=== PATIENT | male | born 1960 | race Caucasian/White ===

== ENCOUNTER 2017-05-09 03:14 | Emergency (ER) | payer MEDICAID ==
[~2017-05-09] VITALS: Ht 175.3 cm; Wt 58.0 kg
[~2017-05-09 03:14] MED LIST: IBUP200T5 PO; ONDA4TAB7 PO; PANT40TA3 PO; VANC125C11 PO; albuterol inh
[2017-05-09 05:15] VITALS: BP 112/74
== END 2017-05-09 05:23 | disposition home or self-care (01) ==
LOC: ED 03:41
DX: F10.220 Alcohol dependence with intoxication, uncomplicated (principal); J44.9 Chronic obstructive pulmonary disease, unspecified
CPT/HCPCS: 99283

== ENCOUNTER 2017-05-10 22:45 | Emergency (ER) | payer MEDICAID | END 2017-05-10 23:22 | disposition left against medical advice (07) | LOC: ED 23:16 | DX: Z53.21 Procedure and treatment not carried out due to patient leaving prior to being seen by health care provider (principal) ==

== ENCOUNTER 2017-05-11 20:21 | Inpatient (IN) | payer MEDICAID ==
[~2017-05-11] VITALS: Ht 175.3 cm; Wt 56.0 kg
[~2017-05-11 20:21] MED LIST changes: +IBUP-1484 PO; -IBUP200T5 PO
[2017-05-11] MEDS: SODIUM CHLORIDE 0.9% 1,000 ML IV SCH (21:52)
[2017-05-11] MEDS ORDERED: PROMETHAZINE 25 MG/ML, 1ML IM PRN (22:00)
[2017-05-11] MEDS ORDERED: LORazepam 2 MG/ML, 1ML IVPush PRN (22:00)
[2017-05-11] MEDS ORDERED: LABETALOL 5MG/ML, 20ML IVPush PRN (22:00)
[2017-05-11] MEDS ORDERED: DOCUSATE 100 MG CAPSULE PO PRN (22:00)
[2017-05-11] MEDS ORDERED: ACETAMINOPHEN 325 MG TABLET PO PRN (22:00)
[2017-05-11] MEDS ORDERED: MORPHINE SULFATE 4 MG/ML, 1ML IVPush ONE (22:00)
[2017-05-11] MEDS ORDERED: ZOLPIDEM 5MG TABLET PO PRN (22:00)
[2017-05-11] MEDS ORDERED: ONDANSETRON 2MG/ML, 2ML IVPush PRN (22:00)
[2017-05-11] MEDS ORDERED: BISACODYL 10 MG SUPP PR PRN (22:00)
[2017-05-11] MEDS ORDERED: POLYETHYLENE GLYCOL 17 GM PACKET PO PRN (22:00)
[2017-05-11] MEDS: NICOTINE 21 MG/24 HR PATCH.TD24 TD SCH (22:50)
[2017-05-11] MEDS: OXYcodone IR 5MG TABLET PO PRN (22:50)
[2017-05-11 23:18] LABS: HEMATOCRIT 43.2 % (39.2-51.8); HEMOGLOBIN 14.6 g/dL (13.7-18.0); WHITE BLOOD COUNT 3.8 x10^3/uL (3.4-10)
[2017-05-11 23:26] LABS: ASPARTATE AMINO TRANSFERASE 315 U/L (15-37); BLOOD UREA NITROGEN 4 mg/dL (7-18)
[2017-05-12] MEDS: POTASSIUM CHLORIDE 20 MEQ, MAGNESIUM SULFATE 2 GM, THIAMINE 100 MG, MVI ADULT 10 ML, FO... IV SCH ×3 (00:02→13:52)
[2017-05-12] MEDS: morphine SULFATE 10 MG/ML, 1ML IVPush PRN (00:13)
[2017-05-12 01:24] LABS: DAU SCREEN DISCLAIMER
[2017-05-12 01:56] VITALS: BP 152/87
[2017-05-12] MEDS: OXYcodone IR 5MG TABLET PO PRN ×4 (03:55→22:36)
[2017-05-12 07:40] VITALS: BP 144/93
[2017-05-12] MEDS: SODIUM CHLORIDE 0.9% 1,000 ML IV SCH ×2 (10:07→18:18)
[2017-05-12] MEDS: LORazepam 0.5MG TABLET PO PRN (10:24)
[2017-05-12] MEDS ORDERED: LORazepam 2 MG/ML, 1ML IV PRN ×4 (10:30)
[2017-05-12] MEDS ORDERED: LORazepam 1MG TABLET PO PRN ×2 (10:30)
[2017-05-12 12:31] VITALS: BP 150/88
[2017-05-12] MEDS: LORazepam 1MG TABLET PO PRN ×2 (14:03→18:21)
[2017-05-12 20:05] VITALS: BP 115/75
[2017-05-12] MEDS: NICOTINE 21 MG/24 HR PATCH.TD24 TD SCH (21:01)
[2017-05-13] MEDS: POTASSIUM CHLORIDE 20 MEQ, MAGNESIUM SULFATE 2 GM, THIAMINE 100 MG, MVI ADULT 10 ML, FO... IV SCH
[2017-05-13 00:04] VITALS: BP 111/64
[2017-05-13] MEDS: SODIUM CHLORIDE 0.9% 1,000 ML IV SCH ×2 (00:22→10:41)
[2017-05-13] MEDS: morphine SULFATE 10 MG/ML, 1ML IVPush PRN ×3 (04:10→16:58)
[2017-05-13 05:38] LABS: ASPARTATE AMINO TRANSFERASE 82 U/L (15-37); BLOOD UREA NITROGEN 5 mg/dL (7-18)
[2017-05-13 06:00] LABS: DIFF TOTAL CELLS COUNTED 100 CELL DIFF; HEMATOCRIT 39.5 % (39.2-51.8); HEMOGLOBIN 13.4 g/dL (13.7-18.0); WHITE BLOOD COUNT 3.6 x10^3/uL (3.4-10)
[2017-05-13 06:01] LABS: VERIFY COUNTS? YES
[2017-05-13 07:51] VITALS: BP 106/68
[2017-05-13 13:36] VITALS: BP 118/72
[2017-05-13] MEDS: LORazepam 1MG TABLET PO PRN (14:33)
[2017-05-13] MEDS: ENOXAPARIN 40 MG/0.4 ML SQ SCH (14:34)
[2017-05-13 18:55] VITALS: BP 114/76
[2017-05-13] MEDS: NICOTINE 21 MG/24 HR PATCH.TD24 TD SCH (21:18)
[2017-05-13] MEDS: OXYcodone IR 5MG TABLET PO PRN (21:18)
[2017-05-13] MEDS: LORazepam 0.5MG TABLET PO PRN (21:36)
[2017-05-14 01:13] VITALS: BP 129/80
[2017-05-14] MEDS: LORazepam 1MG TABLET PO PRN ×4 (01:18→22:49)
[2017-05-14] MEDS: OXYcodone IR 5MG TABLET PO PRN ×4 (01:18→18:06)
[2017-05-14] MEDS: LORazepam 0.5MG TABLET PO PRN (03:13)
[2017-05-14 04:47] LABS: BLOOD UREA NITROGEN 5 mg/dL (7-18)
[2017-05-14 04:52] LABS: ASPARTATE AMINO TRANSFERASE 71 U/L (15-37)
[2017-05-14 04:54] LABS: HEMATOCRIT 42.6 % (39.2-51.8); HEMOGLOBIN 14.4 g/dL (13.7-18.0); WHITE BLOOD COUNT 3.9 x10^3/uL (3.4-10)
[2017-05-14 07:55] VITALS: BP 121/74
[2017-05-14] MEDS: THIAMINE 100MG TABLET PO SCH (09:37)
[2017-05-14] MEDS: FOLIC ACID 1 MG TABLET PO SCH (09:37)
[2017-05-14] MEDS: MULTIVIT.W/IRON, MINERALS ORAL SOL PO SCH (09:38)
[2017-05-14] MEDS: SODIUM CHLORIDE 0.9% 1,000 ML IV SCH ×2 (12:12→23:49)
[2017-05-14 13:25] VITALS: BP 125/85
[2017-05-14] MEDS: ENOXAPARIN 40 MG/0.4 ML SQ SCH (14:30)
[2017-05-14] MEDS: metroNIDAZOLE 500 MG TABLET PO SCH ×3 (18:06→22:28)
[2017-05-14] MEDS: CHLORDIAZEPOXIDE 5 MG CAPSULE PO SCH ×2 (18:06→22:21)
[2017-05-14] MEDS: LORazepam 2 MG/ML, 1ML IV PRN (18:53)
[2017-05-14 21:03] VITALS: BP 107/71
[2017-05-14] MEDS: NICOTINE 21 MG/24 HR PATCH.TD24 TD SCH (22:21)
[2017-05-15] MEDS: METRONIDAZOLE PMX 500MG/100ML 100 ML IV SCH ×3 (01:23→16:36)
[2017-05-15 01:31] VITALS: BP 127/84
[2017-05-15] MEDS: LORazepam 2 MG/ML, 1ML IV PRN (01:49)
[2017-05-15 06:01] LABS: ASPARTATE AMINO TRANSFERASE 53 U/L (15-37); BLOOD UREA NITROGEN 9 mg/dL (7-18)
[2017-05-15 08:38] VITALS: BP 98/57
[2017-05-15] MEDS: CHLORDIAZEPOXIDE 5 MG CAPSULE PO SCH ×3 (09:27→22:06)
[2017-05-15] MEDS: THIAMINE 100MG TABLET PO SCH (09:27)
[2017-05-15] MEDS: MULTIVIT.W/IRON, MINERALS ORAL SOL PO SCH (09:27)
[2017-05-15] MEDS: FOLIC ACID 1 MG TABLET PO SCH (09:27)
[2017-05-15 14:00] VITALS: BP 104/68
[2017-05-15] MEDS: SODIUM CHLORIDE 0.9% 1,000 ML IV SCH (14:57)
[2017-05-15] MEDS: ENOXAPARIN 40 MG/0.4 ML SQ SCH (14:58)
[2017-05-15] MEDS: POTASSIUM CHLORIDE 20 MEQ TAB.ER.PRT PO SCH (17:00)
[2017-05-15 21:59] VITALS: BP 116/76
[2017-05-15] MEDS: NICOTINE 21 MG/24 HR PATCH.TD24 TD SCH (22:06)
[2017-05-16] MEDS: METRONIDAZOLE PMX 500MG/100ML 100 ML IV SCH ×2 (00:28→08:43)
[2017-05-16] MEDS: OXYcodone IR 5MG TABLET PO PRN ×5 (00:28→19:13)
[2017-05-16 03:59] VITALS: BP 124/77
[2017-05-16] MEDS: SODIUM CHLORIDE 0.9% 1,000 ML IV SCH (04:58)
[2017-05-16] MEDS: POTASSIUM CHLORIDE 20 MEQ TAB.ER.PRT PO SCH (07:48)
[2017-05-16 08:01] VITALS: BP 114/81
[2017-05-16] MEDS: THIAMINE 100MG TABLET PO SCH (08:44)
[2017-05-16] MEDS: MULTIVIT.W/IRON, MINERALS ORAL SOL PO SCH (08:44)
[2017-05-16] MEDS: FOLIC ACID 1 MG TABLET PO SCH (08:44)
[2017-05-16] MEDS: CHLORDIAZEPOXIDE 5 MG CAPSULE PO SCH ×3 (08:44→22:25)
[2017-05-16] MEDS: metroNIDAZOLE 500 MG TABLET PO SCH ×3 (10:00→22:25)
[2017-05-16] MEDS: ENOXAPARIN 40 MG/0.4 ML SQ SCH (14:22)
[2017-05-16 14:23] VITALS: BP 98/64
[2017-05-16] MEDS ORDERED: ACETAMINOPHEN 325 MG TABLET PO PRN (15:30)
[2017-05-16] MEDS ORDERED: LORazepam 0.5MG TABLET PO PRN (15:30)
[2017-05-16] MEDS ORDERED: PROMETHAZINE 25 MG/ML, 1ML IM PRN (15:30)
[2017-05-16] MEDS ORDERED: POLYETHYLENE GLYCOL 17 GM PACKET PO PRN (15:30)
[2017-05-16] MEDS ORDERED: DOCUSATE 100 MG CAPSULE PO PRN (15:30)
[2017-05-16] MEDS ORDERED: LORazepam 2 MG/ML, 1ML IVPush PRN (15:30)
[2017-05-16] MEDS ORDERED: LORazepam 1MG TABLET PO PRN ×4 (15:30)
[2017-05-16] MEDS ORDERED: morphine SULFATE 10 MG/ML, 1ML IVPush PRN (15:30)
[2017-05-16] MEDS ORDERED: LORazepam 2 MG/ML, 1ML IV PRN ×5 (15:30)
[2017-05-16] MEDS ORDERED: ONDANSETRON 2MG/ML, 2ML IVPush PRN (15:30)
[2017-05-16] MEDS ORDERED: BISACODYL 10 MG SUPP PR PRN (15:30)
[2017-05-16] MEDS ORDERED: LABETALOL 5MG/ML, 20ML IVPush PRN (15:30)
[2017-05-16] MEDS ORDERED: ZOLPIDEM 5MG TABLET PO PRN (15:30)
[2017-05-16 19:52] VITALS: BP 104/64
[2017-05-16] MEDS: NICOTINE 21 MG/24 HR PATCH.TD24 TD SCH (22:25)
[2017-05-17 02:32] VITALS: BP 116/68
[2017-05-17 05:53] LABS: BLOOD UREA NITROGEN 9 mg/dL (7-18)
[2017-05-17 06:45] VITALS: BP 115/67
[2017-05-17 08:00] VITALS: BP 96/54
[2017-05-17] MEDS: CHLORDIAZEPOXIDE 5 MG CAPSULE PO SCH ×3 (08:59→21:29)
[2017-05-17] MEDS: THIAMINE 100MG TABLET PO SCH (08:59)
[2017-05-17] MEDS: FOLIC ACID 1 MG TABLET PO SCH (08:59)
[2017-05-17] MEDS: metroNIDAZOLE 500 MG TABLET PO SCH ×3 (08:59→21:30)
[2017-05-17] MEDS: OXYcodone IR 5MG TABLET PO PRN ×2 (08:59→21:30)
[2017-05-17] MEDS: MULTIVIT.W/IRON, MINERALS ORAL SOL PO SCH (09:00)
[2017-05-17] MEDS: ENOXAPARIN 40 MG/0.4 ML SQ SCH (14:47)
[2017-05-17 15:28] VITALS: BP 93/60
[2017-05-17] MEDS ORDERED: MAGNESIUM SULFATE PMX 4GM/100M 100 ML IV ONE (17:30)
[2017-05-17] MEDS ORDERED: LORazepam 2 MG/ML, 1ML IVPush PRN (18:00)
[2017-05-17 19:53] VITALS: BP 99/64
[2017-05-17] MEDS: NICOTINE 21 MG/24 HR PATCH.TD24 TD SCH (21:30)
[2017-05-18] MEDS: OXYcodone IR 5MG TABLET PO PRN ×4 (01:38→20:51)
[2017-05-18 02:43] VITALS: BP 125/78
[2017-05-18 05:32] LABS: ASPARTATE AMINO TRANSFERASE 44 U/L (15-37); BLOOD UREA NITROGEN 11 mg/dL (7-18)
[2017-05-18 05:33] LABS: HEMATOCRIT 39.8 % (39.2-51.8); HEMOGLOBIN 13.3 g/dL (13.7-18.0)
[2017-05-18 06:02] LABS: DIFF TOTAL CELLS COUNTED 100 CELL DIFF; WHITE BLOOD COUNT 3.2 x10^3/uL (3.4-10)
[2017-05-18 06:06] LABS: VERIFY COUNTS? YES
[2017-05-18 07:48] VITALS: BP 102/64
[2017-05-18] MEDS: metroNIDAZOLE 500 MG TABLET PO SCH ×3 (10:17→20:51)
[2017-05-18] MEDS: CHLORDIAZEPOXIDE 5 MG CAPSULE PO SCH ×2 (10:17→20:51)
[2017-05-18] MEDS: THIAMINE 100MG TABLET PO SCH (10:17)
[2017-05-18] MEDS: MULTIVITAMIN 1 TABLET PO SCH (10:17)
[2017-05-18] MEDS: FOLIC ACID 1 MG TABLET PO SCH (10:17)
[2017-05-18 14:01] VITALS: BP 93/60
[2017-05-18] MEDS: ENOXAPARIN 40 MG/0.4 ML SQ SCH (15:55)
[2017-05-18 20:17] VITALS: BP 93/58
[2017-05-18] MEDS: NICOTINE 21 MG/24 HR PATCH.TD24 TD SCH (20:51)
[2017-05-19 03:21] VITALS: BP 107/51
[2017-05-19 07:10] LABS: BLOOD UREA NITROGEN 15 mg/dL (7-18); HEMATOCRIT 39.1 % (39.2-51.8); WHITE BLOOD COUNT 3.7 x10^3/uL (3.4-10)
[2017-05-19 07:31] LABS: DIFF TOTAL CELLS COUNTED 100 CELL DIFF
[2017-05-19 07:34] LABS: ANISOCYTOSIS 1+; VERIFY COUNTS? YES
[2017-05-19] MEDS: FOLIC ACID 1 MG TABLET PO SCH (08:44)
[2017-05-19] MEDS: OXYcodone IR 5MG TABLET PO PRN ×3 (08:44→21:41)
[2017-05-19] MEDS: MULTIVITAMIN 1 TABLET PO SCH (08:44)
[2017-05-19] MEDS: THIAMINE 100MG TABLET PO SCH (08:44)
[2017-05-19] MEDS: metroNIDAZOLE 500 MG TABLET PO SCH ×3 (08:44→21:40)
[2017-05-19 10:55] VITALS: BP 91/54
[2017-05-19] MEDS: ENOXAPARIN 40 MG/0.4 ML SQ SCH (14:28)
[2017-05-19 14:33] VITALS: BP 100/66
[2017-05-19 18:39] VITALS: BP 97/63
[2017-05-19] MEDS: NICOTINE 21 MG/24 HR PATCH.TD24 TD SCH (21:42)
[2017-05-20] MEDS: OXYcodone IR 5MG TABLET PO PRN ×3 (01:47→21:54)
[2017-05-20 02:19] VITALS: BP 100/63
[2017-05-20 06:05] LABS: HEMATOCRIT 39.8 % (39.2-51.8); HEMOGLOBIN 13.3 g/dL (13.7-18.0); WHITE BLOOD COUNT 4.3 x10^3/uL (3.4-10)
[2017-05-20 06:19] LABS: BLOOD UREA NITROGEN 14 mg/dL (7-18)
[2017-05-20 06:25] LABS: DIFF TOTAL CELLS COUNTED 100 CELL DIFF
[2017-05-20 06:28] LABS: ANISOCYTOSIS 1+; VERIFY COUNTS? YES
[2017-05-20 07:52] VITALS: BP 99/65
[2017-05-20] MEDS: metroNIDAZOLE 500 MG TABLET PO SCH ×3 (07:53→21:46)
[2017-05-20] MEDS: FOLIC ACID 1 MG TABLET PO SCH (07:53)
[2017-05-20] MEDS: MULTIVITAMIN 1 TABLET PO SCH (07:53)
[2017-05-20] MEDS: THIAMINE 100MG TABLET PO SCH (07:53)
[2017-05-20 14:30] VITALS: BP 104/66
[2017-05-20] MEDS: ENOXAPARIN 40 MG/0.4 ML SQ SCH (16:10)
[2017-05-20 20:00] VITALS: BP 100/66
[2017-05-20] MEDS: NICOTINE 21 MG/24 HR PATCH.TD24 TD SCH (21:46)
[2017-05-21 00:54] VITALS: BP 98/55
[2017-05-21] MEDS: OXYcodone IR 5MG TABLET PO PRN ×5 (02:00→23:27)
[2017-05-21] MEDS: MULTIVITAMIN 1 TABLET PO SCH (07:31)
[2017-05-21] MEDS: THIAMINE 100MG TABLET PO SCH (07:31)
[2017-05-21] MEDS: FOLIC ACID 1 MG TABLET PO SCH (07:31)
[2017-05-21] MEDS: metroNIDAZOLE 500 MG TABLET PO SCH ×3 (07:31→21:17)
[2017-05-21 07:56] VITALS: BP 96/63
[2017-05-21 14:14] VITALS: BP 93/54
[2017-05-21] MEDS: ENOXAPARIN 40 MG/0.4 ML SQ SCH (14:15)
[2017-05-21 19:24] VITALS: BP 108/64
[2017-05-21] MEDS: NICOTINE 21 MG/24 HR PATCH.TD24 TD SCH (21:18)
[2017-05-22 01:50] VITALS: BP 109/68
[2017-05-22 09:09] VITALS: BP 102/66
[2017-05-22] MEDS: OXYcodone IR 5MG TABLET PO PRN ×4 (09:23→23:43)
[2017-05-22] MEDS: MULTIVITAMIN 1 TABLET PO SCH (09:23)
[2017-05-22] MEDS: FOLIC ACID 1 MG TABLET PO SCH (09:23)
[2017-05-22] MEDS: THIAMINE 100MG TABLET PO SCH (09:23)
[2017-05-22] MEDS: metroNIDAZOLE 500 MG TABLET PO SCH ×3 (09:23→21:34)
[2017-05-22 14:25] VITALS: BP 97/60
[2017-05-22] MEDS: ENOXAPARIN 40 MG/0.4 ML SQ SCH (15:00)
[2017-05-22 19:46] VITALS: BP 100/61
[2017-05-22] MEDS: NICOTINE 21 MG/24 HR PATCH.TD24 TD SCH (21:34)
[2017-05-23 01:07] VITALS: BP 110/66
[2017-05-23] MEDS: OXYcodone IR 5MG TABLET PO PRN ×5 (03:42→19:51)
[2017-05-23 07:23] VITALS: BP 104/67
[2017-05-23] MEDS: FOLIC ACID 1 MG TABLET PO SCH (08:31)
[2017-05-23] MEDS: MULTIVITAMIN 1 TABLET PO SCH (08:31)
[2017-05-23] MEDS: THIAMINE 100MG TABLET PO SCH (08:31)
[2017-05-23] MEDS: metroNIDAZOLE 500 MG TABLET PO SCH ×2 (08:31→15:36)
[2017-05-23 14:00] VITALS: BP 101/68
[2017-05-23] MEDS ORDERED: DOCUSATE 100 MG CAPSULE PO PRN (15:30)
[2017-05-23] MEDS ORDERED: ACETAMINOPHEN 325 MG TABLET PO PRN (15:30)
[2017-05-23] MEDS ORDERED: ONDANSETRON 2MG/ML, 2ML IVPush PRN (15:30)
[2017-05-23] MEDS ORDERED: LORazepam 2 MG/ML, 1ML IVPush PRN (15:30)
[2017-05-23] MEDS ORDERED: BISACODYL 10 MG SUPP PR PRN (15:30)
[2017-05-23] MEDS ORDERED: LABETALOL 5MG/ML, 20ML IVPush PRN (15:30)
[2017-05-23] MEDS: ENOXAPARIN 40 MG/0.4 ML SQ SCH (15:37)
[2017-05-23 19:20] VITALS: BP 123/76
[2017-05-23] MEDS: NICOTINE 21 MG/24 HR PATCH.TD24 TD SCH (22:00)
[2017-05-24] MEDS: metroNIDAZOLE 500 MG TABLET PO SCH ×4 (00:44→22:44)
[2017-05-24] MEDS: OXYcodone IR 5MG TABLET PO PRN ×6 (00:49→23:59)
[2017-05-24 04:00] VITALS: BP 99/63
[2017-05-24 07:27] VITALS: BP 105/69
[2017-05-24] MEDS: THIAMINE 100MG TABLET PO SCH (08:11)
[2017-05-24] MEDS: FOLIC ACID 1 MG TABLET PO SCH (08:11)
[2017-05-24] MEDS: MULTIVITAMIN 1 TABLET PO SCH (08:11)
[2017-05-24 15:22] VITALS: BP 104/64
[2017-05-24] MEDS: ENOXAPARIN 40 MG/0.4 ML SQ SCH (15:44)
[2017-05-24 20:00] VITALS: BP 132/81
[2017-05-24] MEDS: NICOTINE 21 MG/24 HR PATCH.TD24 TD SCH (22:44)
[2017-05-25 03:52] VITALS: BP 106/66
[2017-05-25] MEDS: OXYcodone IR 5MG TABLET PO PRN ×4 (03:57→16:02)
[2017-05-25 08:16] VITALS: BP 99/66
[2017-05-25] MEDS: FOLIC ACID 1 MG TABLET PO SCH (08:49)
[2017-05-25] MEDS: MULTIVITAMIN 1 TABLET PO SCH (08:49)
[2017-05-25] MEDS: THIAMINE 100MG TABLET PO SCH (08:49)
[2017-05-25] MEDS: metroNIDAZOLE 500 MG TABLET PO SCH ×2 (08:49→16:02)
[2017-05-25] MEDS ORDERED: FOLI-17 PO (12:56)
[2017-05-25] MEDS ORDERED: THIA100T6 PO (12:56)
[2017-05-25] MEDS ORDERED: MULT1TAB60 PO (12:56)
[2017-05-25] MEDS ORDERED: METR500T PO (12:56)
[2017-05-25] MEDS ORDERED: OXYC5TAB3 PO (12:56)
[2017-05-25 14:42] VITALS: BP 105/66
[2017-05-25] MEDS: ENOXAPARIN 40 MG/0.4 ML SQ SCH (16:02)
== END 2017-05-25 17:02 | DRG 533 ==
LOC: 4NOR 21:42
PROVIDERS: ATTEND Family Medicine
DX: S72.425A Nondisplaced fracture of lateral condyle of left femur, initial encounter for closed fracture (principal); E43 Unspecified severe protein-calorie malnutrition; D68.9 Coagulation defect, unspecified; A04.7 Enterocolitis due to Clostridium difficile; D50.9 Iron deficiency anemia, unspecified; F17.210 Nicotine dependence, cigarettes, uncomplicated; F10.239 Alcohol dependence with withdrawal, unspecified; Z68.1 Body mass index [BMI] 19.9 or less, adult; W18.39XA Other fall on same level, initial encounter; K70.9 Alcoholic liver disease, unspecified; I10 Essential (primary) hypertension; F12.90 Cannabis use, unspecified, uncomplicated; D53.9 Nutritional anemia, unspecified; E87.6 Hypokalemia; J44.9 Chronic obstructive pulmonary disease, unspecified; K29.20 Alcoholic gastritis without bleeding; Z59.0 Homelessness; Z86.73 Personal history of transient ischemic attack (TIA), and cerebral infarction without residual deficits; Z90.89 Acquired absence of other organs; Z80.9 Family history of malignant neoplasm, unspecified; Y93.89 Activity, other specified; Y92.89 Other specified places as the place of occurrence of the external cause; Y99.8 Other external cause status
CPT/HCPCS: 36415; 71010; 80048; 80053; 80074; 80307; 81001; 82306; 82607; 82746; 83735; 84100; 84443; 85025; 85610; 87324; 87493; 93005; J1650; J3411; J3475; J3480; J7042; J2060; J2270; J3420; J7030

== ENCOUNTER 2018-03-29 19:18 | Emergency (ER) | payer MEDICAID ==
[~2018-03-29] VITALS: Ht 175.3 cm; Wt 63.6 kg
[~2018-03-29 19:18] MED LIST changes: +FOLI-17 PO; +METR500T PO; +MULT1TAB60 PO; +OXYC5TAB3 PO; +THIA100T6 PO
[2018-03-29 20:08] LABS: MEAN CORPUSCULAR HEMOGLOBIN 35.4 pg (27.5-34.5); MEAN CORPUSCULAR HGB CONC 34.3 g/dL (33.2-36.2); MEAN CORPUSCULAR VOLUME 103.3 fL (81-97); MEAN PLATELET VOLUME 7.5 fL (7.4-10.4); PLATELET COUNT 119 x10^3/uL (130-400); RED BLOOD COUNT 4.46 x10^6/uL (4.38-5.82); RED CELL DISTRIBUTION WIDTH 16.4 % (9.4-14.8)
[2018-03-29 20:19] LABS: ALANINE AMINOTRANSFERASE 155 U/L (12-78); ALBUMIN 4.1 g/dL (3.4-5.0); ANION GAP 10 mmol/L (5-15); CALCIUM 8.4 mg/dL (8.5-10.1); CHLORIDE 105 mmol/L (98-107); CREATININE 0.68 mg/dL (0.7-1.3)
[2018-03-29 20:22] LABS: ALKALINE PHOSPHATASE 108 U/L (45-117); BILIRUBIN,TOTAL 1.4 mg/dL (0.2-1.0); TOTAL PROTEIN 8.1 g/dL (6.4-8.2)
[2018-03-29 20:26] LABS: BASOPHILS # (AUTO) 0.02 x10^3/uL (0-0.1); BASOPHILS % (AUTO) 1 % (0-1); EOSINOPHILS # (AUTO) 0.02 x10^3/uL (0-0.4); EOSINOPHILS % (AUTO) 1 % (1-7); LYMPHOCYTES # (AUTO) 0.58 x10^3/uL (1-3.4); LYMPHOCYTES % (AUTO) 21 % (22-44); MD SCAN; MONOCYTES # (AUTO) 0.44 x10^3/uL (0.2-0.8); MONOCYTES % (AUTO) 16 % (2-9); NEUTROPHILS # (AUTO) 1.74 x10^3/uL (1.8-6.8); NEUTROPHILS % (AUTO) 62 % (42-75)
[2018-03-29 22:56] VITALS: BP 135/78
== END 2018-03-29 22:58 | disposition home or self-care (01) ==
LOC: ED 19:24
DX: K29.20 Alcoholic gastritis without bleeding (principal); R10.13 Epigastric pain; F10.180 Alcohol abuse with alcohol-induced anxiety disorder; F19.10 Other psychoactive substance abuse, uncomplicated; F17.200 Nicotine dependence, unspecified, uncomplicated; Z72.9 Problem related to lifestyle, unspecified; Z79.899 Other long term (current) drug therapy
CPT/HCPCS: 36415; 80053; 80307; 83690; 85025; 99284

== ENCOUNTER 2018-07-07 16:16 | Emergency (ER) | payer MEDICAID ==
[~2018-07-07] VITALS: Ht 175.3 cm; Wt 60.0 kg
[~2018-07-07 16:16] MED LIST changes: -THIA100T6 PO; +THIA100T67 PO
[2018-07-07] MEDS ORDERED: ALBUTEROL/IPRATROPIUM 2.5MG/0.5MG, 3 ML ONE (17:20)
[2018-07-07] MEDS ORDERED: THIAMINE 100MG TABLET PO ONE (17:30)
[2018-07-07] MEDS ORDERED: ALBUTEROL/IPRATROPIUM 2.5MG/0.5MG, 3 ML NPPB ONE (17:30)
[2018-07-07] MEDS ORDERED: THIAMINE 100MG TABLET ONE (17:51)
[2018-07-07 17:59] LABS: MICROSCOPIC INDICATED
[2018-07-07 18:02] LABS: ALANINE AMINOTRANSFERASE 54 U/L (12-78); ANION GAP 12 mmol/L (5-15); CALCIUM 9.4 mg/dL (8.5-10.1); CHLORIDE 101 mmol/L (98-107); CREATININE 0.47 mg/dL (0.7-1.3)
[2018-07-07 18:04] LABS: ALKALINE PHOSPHATASE 136 U/L (45-117); BILIRUBIN,TOTAL 0.9 mg/dL (0.2-1.0); TOTAL PROTEIN 8.1 g/dL (6.4-8.2)
[2018-07-07 18:07] LABS: CULTURE INDICATED? NO
[2018-07-07 18:12] LABS: BASOPHILS # (AUTO) 0.03 x10^3/uL (0-0.1); BASOPHILS % (AUTO) 1 % (0-1); EOSINOPHILS # (AUTO) 0.03 x10^3/uL (0-0.4); EOSINOPHILS % (AUTO) 1 % (1-7); LYMPHOCYTES # (AUTO) 0.58 x10^3/uL (1-3.4); LYMPHOCYTES % (AUTO) 13 % (22-44); MD MORPH REVIEW ONLY; MEAN CORPUSCULAR HEMOGLOBIN 36.8 pg (27.5-34.5); MEAN CORPUSCULAR HGB CONC 34.5 g/dL (33.2-36.2); MEAN CORPUSCULAR VOLUME 106.7 fL (81-97); MEAN PLATELET VOLUME 8.1 fL (7.4-10.4); MONOCYTES # (AUTO) 0.46 x10^3/uL (0.2-0.8); MONOCYTES % (AUTO) 10 % (2-9); NEUTROPHILS % (AUTO) 76 % (42-75); PLATELET COUNT 84 x10^3/uL (130-400); RED BLOOD COUNT 4.32 x10^6/uL (4.38-5.82); RED CELL DISTRIBUTION WIDTH 14.6 % (9.4-14.8)
[2018-07-07 18:13] LABS: <PLATELET ESTIMATE> DECREASED; <PLT MORPHOLOGY> NORMAL PLT MORPH; ANISOCYTOSIS 1+
[2018-07-07 18:57] VITALS: BP 132/81
== END 2018-07-07 19:56 | disposition home or self-care (01) ==
LOC: ED 18:11
DX: J44.9 Chronic obstructive pulmonary disease, unspecified (principal); F10.20 Alcohol dependence, uncomplicated; F17.210 Nicotine dependence, cigarettes, uncomplicated
CPT/HCPCS: 36415; 71045; 80053; 80307; 81001; 83690; 85025; 94640; 99285; J7620

== ENCOUNTER 2018-11-30 13:42 | Emergency (ER) | payer MEDICAID ==
[~2018-11-30] VITALS: Ht 172.7 cm; Wt 56.2 kg
[2018-11-30 14:10] VITALS: BP 140/73
--- NOTE | 2018-11-30 14:25 | NUR ---
INSECT RETRIEVED FROM PT BLANKET. PLACED IN SPECIMEN CUP FOR REVIEW.
--- NOTE | 2018-11-30 15:00 | NUR ---
PANTS, SHIRT SOCKS PROVIDED TO PT.
--- NOTE | 2018-11-30 15:46 | NUR ---
PT STILL IN ED ROOM, DONNING OUTERWEAR.
== END 2018-11-30 16:29 | disposition home or self-care (01) ==
LOC: ED 15:52
DX: L03.116 Cellulitis of left lower limb (principal); L03.115 Cellulitis of right lower limb; B85.1 Pediculosis due to Pediculus humanus corporis; B85.0 Pediculosis due to Pediculus humanus capitis; J44.9 Chronic obstructive pulmonary disease, unspecified
CPT/HCPCS: 99283

== ENCOUNTER 2019-01-02 20:55 | Emergency (ER) | payer MEDICAID ==
[~2019-01-02] VITALS: Ht 170.2 cm; Wt 60.0 kg
[2019-01-02 21:00] VITALS: BP 121/77
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
--- NOTE | 2019-01-02 21:54 | NUR ---
PT RESTING WITH EYES CLOSED, NO DISTRESS NOTED
--- NOTE | 2019-01-02 23:07 | NUR ---
JENIFFER AT BS FOR SPLINTING
--- NOTE | 2019-01-02 23:52 | NUR ---
PT WANTS SPLINT OFF, INFORMED HIM I WAS NOT TAKING IT OFF. PT GIVE CLOTHING FROM LOCKER TO TRY ON
--- NOTE | 2019-01-03 00:08 | NUR ---
PT REFUSING TO GET DRESSED AND LEAVE, SECURITY CALLED
== END 2019-01-03 00:46 | disposition home or self-care (01) ==
LOC: ED 22:40
DX: S82.65XA Nondisplaced fracture of lateral malleolus of left fibula, initial encounter for closed fracture (principal); F10.120 Alcohol abuse with intoxication, uncomplicated; J44.9 Chronic obstructive pulmonary disease, unspecified; F17.200 Nicotine dependence, unspecified, uncomplicated; Z72.9 Problem related to lifestyle, unspecified; X58.XXXA Exposure to other specified factors, initial encounter; Y93.89 Activity, other specified; Y92.89 Other specified places as the place of occurrence of the external cause; Y99.8 Other external cause status; Y90.9 Presence of alcohol in blood, level not specified
CPT/HCPCS: 99283

== ENCOUNTER 2019-01-25 18:06 | Inpatient (IN) | payer MEDICAID ==
[~2019-01-25] VITALS: Ht 172.7 cm; Wt 62.1 kg
--- NOTE | 2019-01-25 18:15 | NUR ---
Pt BIB EMS from [employer] store for infection to R foot. Pt seen here before for same but unable to fill rx and unable to reach foot and care for it. Pt states chronic ETOH, last use 2 hours ago. "I was at the store, gonna by a beer and they said I didn't look so good". Pt also c/o mild SOB. 90-93% RA. Foot is swollen, red, draining liquid.
[2019-01-25] MEDS ORDERED: VANCOMYCIN PER PHARMACY IV ONE (19:00)
[2019-01-25] MEDS ORDERED: CEFAZOLIN PMX 1GM/50ML 50 ML IV ONE (19:00)
[2019-01-25] MEDS ORDERED: SODIUM CHLORIDE FLUSH 10ML SYR IVF ONE (19:00)
[2019-01-25] MEDS ORDERED: CEFAZOLIN PMX 1GM/50ML 50 ML ONE (19:11)
[2019-01-25 19:21] LABS: BASOPHILS # (AUTO) 0.04 x10^3/uL (0-0.1); BASOPHILS % (AUTO) 1 % (0-1); EOSINOPHILS # (AUTO) 0.15 x10^3/uL (0-0.4); EOSINOPHILS % (AUTO) 4 % (1-7); LYMPHOCYTES # (AUTO) 0.92 x10^3/uL (1-3.4); LYMPHOCYTES % (AUTO) 22 % (22-44); MD NO; MEAN CORPUSCULAR HEMOGLOBIN 32.9 pg (27.5-34.5); MEAN CORPUSCULAR HGB CONC 34.4 g/dL (33.2-36.2); MEAN CORPUSCULAR VOLUME 95.8 fL (81-97); MEAN PLATELET VOLUME 6.7 fL (7.4-10.4); MONOCYTES # (AUTO) 0.38 x10^3/uL (0.2-0.8); MONOCYTES % (AUTO) 9 % (2-9); NEUTROPHILS # (AUTO) 2.74 x10^3/uL (1.8-6.8); NEUTROPHILS % (AUTO) 65 % (42-75); PLATELET COUNT 207 x10^3/uL (130-400); RED BLOOD COUNT 4.22 x10^6/uL (4.38-5.82); RED CELL DISTRIBUTION WIDTH 15.1 % (9.4-14.8)
--- NOTE | 2019-01-25 19:25 | NUR ---
after clarification with provider. no blood cultures prior to abx. us piv started and abd administered per emar
[2019-01-25] MEDS ORDERED: VANCOMYCIN 1,300 MG in SODIUM CHLORIDE 0.9% 250 ML IV ONE (19:30)
[2019-01-25 19:31] LABS: ALBUMIN 3.4 g/dL (3.4-5.0); ANION GAP 8 mmol/L (5-15); CALCIUM 7.9 mg/dL (8.5-10.1); CHLORIDE 106 mmol/L (98-107)
[2019-01-25] MEDS ORDERED: HYDROcodone/APAP 5/325 TABLET PO ONE (19:40)
--- NOTE | 2019-01-25 19:47 | NUR ---
WITH REASSESSMENT VITALS REMAIN NORMAL. DENIES COMPLAINTS W/ ANCEF ADMINISTRATION (CROSS REACTIVITY WITH UNASYN). VANCOMYCIN STARTED FOOD PROVIDED AFTER CLARIFICATION WITH PROVIDER RESTING COMFORTABLY ON GURNERY W/ CALL RODRIGUEZ IN HAND UPDATED ON ESTIMATED POC-ADMIT
[2019-01-25] MEDS ORDERED: HYDROcodone/APAP 5/325 TABLET ONE (19:51)
[2019-01-25] MEDS ORDERED: KETOROLAC 30 MG/1 ML IV PRN (20:30)
[2019-01-25] MEDS ORDERED: VANCOMYCIN PER PHARMACY MC PRN (20:30)
[2019-01-25] MEDS ORDERED: POLYETHYLENE GLYCOL 17 GM PACKET PO PRN (20:30)
[2019-01-25] MEDS ORDERED: ONDANSETRON ODT 4 MG PO PRN (20:30)
[2019-01-25] MEDS ORDERED: BISACODYL 10 MG SUPP PR PRN (20:30)
--- NOTE | 2019-01-25 20:30 | NUR ---
FOOT WOUND GENTLY WASHED WITH SALINE TO REMOVE 2 MAGGOTS NOTED. NO SIGN OF OTHER INSECTS (BED BUGS OR LICE NOTED OR REPORTED)
[2019-01-25] MEDS ORDERED: CEFTRIAXONE PMX 2GM/50ML 50 ML ONE (20:38)
--- NOTE | 2019-01-25 20:40 | NUR ---
CLARIFIED WITH HOSPITALIST THAT THEY WOULD LIKE ROCEPHIN 2G IN ADDITION TO ANCEF/VANC
--- NOTE | 2019-01-25 20:51 | NUR ---
PIV PULLED OUT, REPLACED WITH NEW ULTRASOUND PIV TO LEFT FOREARM VSS REMAIN STABLE REPORTS PAIN MEDICATION IMPROVED PAIN TO 3/10 UPDATED ON POC RESTING COMFORTABLY ON GURNEY W/ CALL RODRIGUEZ INHLARRY
--- NOTE | 2019-01-25 21:14 | NUR ---
PATIENT TRANSFERRED WITH VANCOMYCIN INFUSING, CEFTRIAXONE HANGING ON IV POLE FOR ADMIN ONCE VANC IS DONE
[2019-01-25 22:35] VITALS: BP 142/94
[2019-01-25] MEDS ORDERED: PHARMACOKINETIC MONITORING MC PRN (23:00)
[2019-01-26 00:20] VITALS: BP 134/62
[2019-01-26] MEDS: ACETAMINOPHEN 325 MG TABLET PO PRN ×2 (00:34→09:55)
[2019-01-26] MEDS: HEPARIN 5,000 UNITS/ML, 1ML SQ SCH ×3 (02:16→17:52)
[2019-01-26] MEDS: CEFTRIAXONE PMX 2GM/50ML 50 ML IV SCH (02:16)
[2019-01-26 06:03] LABS: BASOPHILS # (AUTO) 0.03 x10^3/uL (0-0.1); BASOPHILS % (AUTO) 1 % (0-1); EOSINOPHILS # (AUTO) 0.15 x10^3/uL (0-0.4); EOSINOPHILS % (AUTO) 4 % (1-7); LYMPHOCYTES % (AUTO) 21 % (22-44); MD NO; MEAN CORPUSCULAR HEMOGLOBIN 32.6 pg (27.5-34.5); MEAN CORPUSCULAR VOLUME 95.9 fL (81-97); MEAN PLATELET VOLUME 7.1 fL (7.4-10.4); MONOCYTES # (AUTO) 0.55 x10^3/uL (0.2-0.8); MONOCYTES % (AUTO) 13 % (2-9); NEUTROPHILS # (AUTO) 2.62 x10^3/uL (1.8-6.8); NEUTROPHILS % (AUTO) 62 % (42-75); PLATELET COUNT 171 x10^3/uL (130-400); RED BLOOD COUNT 3.83 x10^6/uL (4.38-5.82); RED CELL DISTRIBUTION WIDTH 15.1 % (9.4-14.8)
[2019-01-26 06:05] LABS: CHLORIDE 108 mmol/L (98-107)
[2019-01-26 06:18] LABS: ALANINE AMINOTRANSFERASE 15 U/L (12-78); ALBUMIN 2.9 g/dL (3.4-5.0); ALKALINE PHOSPHATASE 99 U/L (45-117); ANION GAP 8 mmol/L (5-15); BILIRUBIN,TOTAL 0.5 mg/dL (0.2-1.0); CALCIUM 8.1 mg/dL (8.5-10.1); CREATININE 0.52 mg/dL (0.7-1.3); TOTAL PROTEIN 7.2 g/dL (6.4-8.2)
[2019-01-26] MEDS ORDERED: VANCOMYCIN 1,300 MG in SODIUM CHLORIDE 0.9% 250 ML IV SCH (08:00)
[2019-01-26] MEDS: SENNA/DOCUSATE TABLET PO SCH (08:12)
[2019-01-26 08:29] VITALS: BP 170/86
[2019-01-26] MEDS ORDERED: VANCOMYCIN 1,200 MG in SODIUM CHLORIDE 0.9% 250 ML IV SCH (09:00)
[2019-01-26] MEDS ORDERED: GADOBUTROL 7.5 MMOL/7.5 ML PFS ONE (10:44)
[2019-01-26] MEDS ORDERED: FOLIC ACID 5 MG/ML IM ONE (14:30)
[2019-01-26] MEDS ORDERED: LIDODERM 5% PATCH TD PRN (14:30)
[2019-01-26] MEDS ORDERED: LORazepam 2 MG/ML, 1ML IV PRN ×5 (14:30)
[2019-01-26] MEDS ORDERED: DOCUSATE 100 MG CAPSULE PO PRN (14:30)
[2019-01-26] MEDS ORDERED: LORazepam 0.5MG TABLET PO PRN (14:30)
[2019-01-26] MEDS ORDERED: LORazepam 1MG TABLET PO PRN ×3 (14:30)
[2019-01-26] MEDS ORDERED: BISACODYL 10 MG SUPP PR PRN (14:30)
[2019-01-26 15:53] VITALS: BP 157/92
[2019-01-26] MEDS: LORazepam 1MG TABLET PO PRN ×2 (16:03→21:07)
[2019-01-26] MEDS: MUPIROCIN OINT 2%, 22GM TP SCH (17:53)
[2019-01-26 19:32] VITALS: BP 138/83
[2019-01-26] MEDS: VANCOMYCIN 1,200 MG in SODIUM CHLORIDE 0.9% 250 ML IV SCH (21:03)
[2019-01-27 00:22] VITALS: BP 135/85
[2019-01-27] MEDS: LORazepam 1MG TABLET PO PRN ×2 (02:05→21:00)
[2019-01-27] MEDS: CEFTRIAXONE PMX 2GM/50ML 50 ML IV SCH (02:08)
[2019-01-27] MEDS: HEPARIN 5,000 UNITS/ML, 1ML SQ SCH ×3 (02:10→18:33)
[2019-01-27] MEDS: MUPIROCIN OINT 2%, 22GM TP SCH ×2 (06:21→17:44)
[2019-01-27] MEDS: VANCOMYCIN 1,200 MG in SODIUM CHLORIDE 0.9% 250 ML IV SCH ×2 (08:31→21:01)
[2019-01-27] MEDS: SENNA/DOCUSATE TABLET PO SCH (09:38)
[2019-01-27] MEDS: MULTIVITAMINS/MINERALS TABLET PO SCH (09:38)
[2019-01-27 09:44] VITALS: BP 117/71
[2019-01-27] MEDS: THIAMINE 100MG TABLET PO SCH (11:40)
[2019-01-27] MEDS ORDERED: PERMETHRIN CRM 5%, 60GM TP ONE (14:00)
[2019-01-27 14:13] VITALS: BP 110/83
[2019-01-27] MEDS: PIPERONYL BUTOXIDE/PYRETHRINS SHAMPOO TP SCH (17:44)
[2019-01-27] MEDS: ACETAMINOPHEN 325 MG TABLET PO PRN (18:40)
[2019-01-27 20:00] VITALS: BP 118/78
[2019-01-28] MEDS: HEPARIN 5,000 UNITS/ML, 1ML SQ SCH ×3 (02:00→18:37)
[2019-01-28 02:01] VITALS: BP 121/80
[2019-01-28] MEDS: CEFTRIAXONE PMX 2GM/50ML 50 ML IV SCH (02:40)
[2019-01-28 04:00] LABS: CLOSTRIDIUM DIFFICILE ANTIGEN NEGATIVE; CLOSTRIDIUM DIFFICILE TOXIN NEGATIVE (Negative)
[2019-01-28] MEDS: MUPIROCIN OINT 2%, 22GM TP SCH ×2 (06:00→17:50)
[2019-01-28] MEDS: THIAMINE 100MG TABLET PO SCH (08:21)
[2019-01-28] MEDS: VANCOMYCIN 1,200 MG in SODIUM CHLORIDE 0.9% 250 ML IV SCH (08:21)
[2019-01-28] MEDS: MULTIVITAMINS/MINERALS TABLET PO SCH (08:21)
[2019-01-28] MEDS: SENNA/DOCUSATE TABLET PO SCH (09:00)
[2019-01-28] MEDS ORDERED: THIAMINE 100 MG in DEXTROSE 5% 50 ML IVPB SCH (09:00)
[2019-01-28 09:03] VITALS: BP 108/67
[2019-01-28 14:41] VITALS: BP 120/73
[2019-01-28] MEDS: ACETAMINOPHEN 325 MG TABLET PO PRN (18:37)
[2019-01-28 19:03] VITALS: BP 115/70
[2019-01-29 00:39] VITALS: BP 139/79
[2019-01-29] MEDS: VANCOMYCIN 1,200 MG in SODIUM CHLORIDE 0.9% 250 ML IV SCH ×3 (01:04→23:38)
[2019-01-29] MEDS: HEPARIN 5,000 UNITS/ML, 1ML SQ SCH ×3 (03:37→18:10)
[2019-01-29] MEDS: CEFTRIAXONE PMX 2GM/50ML 50 ML IV SCH (03:37)
[2019-01-29] MEDS: MUPIROCIN OINT 2%, 22GM TP SCH ×2 (06:00→18:10)
[2019-01-29 07:25] VITALS: BP 126/78
[2019-01-29] MEDS: SENNA/DOCUSATE TABLET PO SCH (09:00)
[2019-01-29] MEDS: THIAMINE 100MG TABLET PO SCH (10:06)
[2019-01-29] MEDS: MULTIVITAMINS/MINERALS TABLET PO SCH (10:06)
[2019-01-29 14:05] VITALS: BP 114/77
[2019-01-29 19:55] VITALS: BP 136/80
[2019-01-29] MEDS: ACETAMINOPHEN 325 MG TABLET PO PRN (23:15)
[2019-01-30] MEDS: HEPARIN 5,000 UNITS/ML, 1ML SQ SCH ×3 (01:32→17:46)
[2019-01-30] MEDS: CEFTRIAXONE PMX 2GM/50ML 50 ML IV SCH (01:32)
[2019-01-30 04:00] VITALS: BP 123/74
[2019-01-30] MEDS: MUPIROCIN OINT 2%, 22GM TP SCH ×2 (05:41→17:46)
[2019-01-30 06:50] VITALS: BP 117/72
[2019-01-30] MEDS: SENNA/DOCUSATE TABLET PO SCH (07:48)
[2019-01-30] MEDS: MULTIVITAMINS/MINERALS TABLET PO SCH (07:48)
[2019-01-30] MEDS: THIAMINE 100MG TABLET PO SCH (07:48)
[2019-01-30 12:52] VITALS: BP 128/75
[2019-01-30] MEDS: VANCOMYCIN 1,200 MG in SODIUM CHLORIDE 0.9% 250 ML IV SCH (12:55)
[2019-01-30 20:02] VITALS: BP 124/73
[2019-01-30] MEDS: ACETAMINOPHEN 325 MG TABLET PO PRN (20:48)
[2019-01-31] MEDS: VANCOMYCIN 1,200 MG in SODIUM CHLORIDE 0.9% 250 ML IV SCH ×2 (00:32→12:39)
[2019-01-31] MEDS: HEPARIN 5,000 UNITS/ML, 1ML SQ SCH ×3 (02:22→18:27)
[2019-01-31 02:27] VITALS: BP 150/83
[2019-01-31] MEDS: MUPIROCIN OINT 2%, 22GM TP SCH (06:41)
[2019-01-31] MEDS: ACETAMINOPHEN 325 MG TABLET PO PRN ×3 (06:45→22:35)
[2019-01-31 07:29] VITALS: BP 112/72
[2019-01-31] MEDS: SENNA/DOCUSATE TABLET PO SCH (09:00)
[2019-01-31] MEDS: MULTIVITAMINS/MINERALS TABLET PO SCH (09:47)
[2019-01-31] MEDS: THIAMINE 100MG TABLET PO SCH (09:47)
[2019-01-31 15:36] VITALS: BP 123/80
[2019-01-31 20:04] VITALS: BP 101/61
[2019-02-01] MEDS: VANCOMYCIN 1,200 MG in SODIUM CHLORIDE 0.9% 250 ML IV SCH ×2 (00:38→13:27)
[2019-02-01] MEDS: HEPARIN 5,000 UNITS/ML, 1ML SQ SCH ×3 (02:33→17:31)
[2019-02-01 02:49] VITALS: BP 108/65
[2019-02-01 05:43] LABS: CREATININE 0.59 mg/dL (0.7-1.3)
[2019-02-01 06:45] VITALS: BP 119/72
[2019-02-01] MEDS: SENNA/DOCUSATE TABLET PO SCH (09:00)
[2019-02-01] MEDS: ACETAMINOPHEN 325 MG TABLET PO PRN ×2 (09:24→19:15)
[2019-02-01] MEDS: MULTIVITAMINS/MINERALS TABLET PO SCH (09:24)
[2019-02-01] MEDS: MUPIROCIN OINT 2%, 22GM TP SCH (09:24)
[2019-02-01] MEDS: THIAMINE 100MG TABLET PO SCH (09:24)
[2019-02-01 14:47] VITALS: BP 98/61
[2019-02-01 20:26] VITALS: BP 116/72
[2019-02-02] MEDS: VANCOMYCIN 1,200 MG in SODIUM CHLORIDE 0.9% 250 ML IV SCH ×2 (00:28→12:03)
[2019-02-02 01:49] VITALS: BP 118/75
[2019-02-02] MEDS: HEPARIN 5,000 UNITS/ML, 1ML SQ SCH ×3 (03:04→18:24)
[2019-02-02] MEDS: MUPIROCIN OINT 2%, 22GM TP SCH (09:23)
[2019-02-02] MEDS: SENNA/DOCUSATE TABLET PO SCH (09:23)
[2019-02-02] MEDS: MULTIVITAMINS/MINERALS TABLET PO SCH (09:23)
[2019-02-02] MEDS: THIAMINE 100MG TABLET PO SCH (09:23)
[2019-02-02 09:32] VITALS: BP 108/76
[2019-02-02 14:44] VITALS: BP 111/69
[2019-02-02 18:43] VITALS: BP 108/71
[2019-02-02] MEDS: ACETAMINOPHEN 325 MG TABLET PO PRN (20:54)
[2019-02-03] MEDS: VANCOMYCIN 1,200 MG in SODIUM CHLORIDE 0.9% 250 ML IV SCH ×2 (00:16→13:56)
[2019-02-03 01:23] VITALS: BP 112/67
[2019-02-03] MEDS: HEPARIN 5,000 UNITS/ML, 1ML SQ SCH ×3 (02:30→18:30)
[2019-02-03 07:09] VITALS: BP 115/72
[2019-02-03] MEDS: SENNA/DOCUSATE TABLET PO SCH (08:05)
[2019-02-03] MEDS: THIAMINE 100MG TABLET PO SCH (08:05)
[2019-02-03] MEDS: MULTIVITAMINS/MINERALS TABLET PO SCH (08:06)
[2019-02-03] MEDS: MUPIROCIN OINT 2%, 22GM TP SCH (09:00)
[2019-02-03 14:06] VITALS: BP 106/67
[2019-02-03 18:42] VITALS: BP 112/71
[2019-02-03] MEDS: ACETAMINOPHEN 325 MG TABLET PO PRN (22:10)
[2019-02-03] MEDS: PIPERONYL BUTOXIDE/PYRETHRINS SHAMPOO TP SCH (23:25)
[2019-02-04 00:05] VITALS: BP 118/72
[2019-02-04] MEDS: VANCOMYCIN 1,200 MG in SODIUM CHLORIDE 0.9% 250 ML IV SCH ×2 (01:09→13:01)
[2019-02-04] MEDS: HEPARIN 5,000 UNITS/ML, 1ML SQ SCH ×2 (01:18→08:46)
[2019-02-04] MEDS: MULTIVITAMINS/MINERALS TABLET PO SCH (08:46)
[2019-02-04] MEDS: THIAMINE 100MG TABLET PO SCH (08:46)
[2019-02-04] MEDS: ACETAMINOPHEN 325 MG TABLET PO PRN (08:47)
[2019-02-04] MEDS: SENNA/DOCUSATE TABLET PO SCH (08:47)
[2019-02-04 09:31] VITALS: BP 108/71
[2019-02-04 14:12] VITALS: BP 114/73
[2019-02-04] MEDS ORDERED: MULT-484 PO (15:05)
[2019-02-04] MEDS ORDERED: THIA100T67 PO (15:05)
== END 2019-02-04 15:35 | disposition home or self-care (01) | DRG 603 ==
LOC: ED 20:04 → EDIP 20:05 → 4NOR 21:10
PROVIDERS: ADMIT Internal Medicine; ATTEND Internal Medicine
DX: L03.115 Cellulitis of right lower limb (principal); D68.9 Coagulation defect, unspecified; B95.62 Methicillin resistant Staphylococcus aureus infection as the cause of diseases classified elsewhere; Z59.0 Homelessness; Z86.73 Personal history of transient ischemic attack (TIA), and cerebral infarction without residual deficits; I10 Essential (primary) hypertension; B85.2 Pediculosis, unspecified; B87.9 Myiasis, unspecified; F17.210 Nicotine dependence, cigarettes, uncomplicated; F10.20 Alcohol dependence, uncomplicated; D75.89 Other specified diseases of blood and blood-forming organs; J44.9 Chronic obstructive pulmonary disease, unspecified; Z91.14 Patient's other noncompliance with medication regimen; Z80.9 Family history of malignant neoplasm, unspecified; Z81.1 Family history of alcohol abuse and dependence; Z90.89 Acquired absence of other organs; Z88.1 Allergy status to other antibiotic agents; Z88.8 Allergy status to other drugs, medicaments and biological substances
CPT/HCPCS: 36415; 80048; 80053; 80202; 82040; 82565; 85025; 87070; 87077; 87147; 87186; 87205; 87324; 96365; 99285; A9585; G0378; J0690; J0696; J1644; J3370; J7050

== ENCOUNTER 2019-05-07 11:03 | Emergency (ER) | payer MEDICAID, OTHER ==
[~2019-05-07] VITALS: Ht 175.3 cm; Wt 55.0 kg
[~2019-05-07 11:03] MED LIST changes: -IBUP-1484 PO; +IBUP-1902 PO; +MULT-484 PO
[2019-05-07 11:07] VITALS: BP 109/68
--- NOTE | 2019-05-07 11:24 | NUR ---
PT HAS CO RIGHT LOWER LEG/FOOT INFECTION. RN REMOVED SHOES, RIGHT FOOT IS OOZY, SCABBED, AND SWOLLEN, STICKING TO SHOE. PT STATES HE HAS WOUNDS FROM FECES. PT IS HOMELESS, PT STATES, HAD BED BUGS IN THE PAST, RN DID NOT VISUALIZE ANY BITES. VS STABLE. WAITING FOR MED ORDERS.
[2019-05-07] MEDS ORDERED: VANCOMYCIN PER PHARMACY MC ONE (11:30)
[2019-05-07] MEDS ORDERED: SODIUM CHLORIDE FLUSH 10ML SYR IVF ONE (11:30)
[2019-05-07] MEDS ORDERED: CEFTRIAXONE PMX 1GM/50ML 50 ML IVPB ONE (11:30)
[2019-05-07 11:52] LABS: BASOPHILS % (AUTO) 3 % (0-1); EOSINOPHILS # (AUTO) 0.22 x10^3/uL (0-0.4); EOSINOPHILS % (AUTO) 7 % (1-7); LYMPHOCYTES # (AUTO) 0.82 x10^3/uL (1-3.4); LYMPHOCYTES % (AUTO) 24 % (22-44); MD NO; MEAN CORPUSCULAR VOLUME 105.9 fL (81-97); MEAN PLATELET VOLUME 6.9 fL (7.4-10.4); MONOCYTES % (AUTO) 9 % (2-9); NEUTROPHILS # (AUTO) 1.94 x10^3/uL (1.8-6.8); NEUTROPHILS % (AUTO) 58 % (42-75); PLATELET COUNT 144 x10^3/uL (130-400); RED BLOOD COUNT 3.99 x10^6/uL (4.38-5.82); RED CELL DISTRIBUTION WIDTH 16.5 % (9.4-14.8)
[2019-05-07] MEDS ORDERED: CEFTRIAXONE PMX 1GM/50ML 50 ML ONE (11:52)
--- NOTE | 2019-05-07 11:55 | NUR ---
FEET SOAKED AND SCRUBBED IN BETA DINE AND WATER
--- NOTE | 2019-05-07 11:55 | NUR ---
BLOOD CULTURES DRAWN PRIOR TO ABX
[2019-05-07 11:59] LABS: ALANINE AMINOTRANSFERASE 33 U/L (12-78); ALBUMIN 3.2 g/dL (3.4-5.0); ANION GAP 10 mmol/L (5-15); CHLORIDE 104 mmol/L (98-107); CREATININE 0.67 mg/dL (0.7-1.3)
[2019-05-07] MEDS ORDERED: VANCOMYCIN PMX 1GM/200ML 200 ML IV ONE (12:00)
[2019-05-07 12:01] LABS: ALKALINE PHOSPHATASE 129 U/L (45-117); BILIRUBIN,TOTAL 0.4 mg/dL (0.2-1.0); TOTAL PROTEIN 7.4 g/dL (6.4-8.2)
--- NOTE | 2019-05-07 12:32 | NUR ---
TASK RN: ATTEMPT X 2 TO START PIV, UNSUCCESSFUL. THIS RN TO UPDATE PRIMARY RN.
--- NOTE | 2019-05-07 13:56 | NUR ---
ED DIET TRAY GIVEN TO PATIENT. PT SITTING UPRIGHT AND EATING
--- NOTE | 2019-05-07 14:59 | NUR ---
ASSISTED PT W GETTING DRESSED. IV REMOVED. Patient given discharge instructions and they have confirmed that they understand the instructions. Patient ambulatory with steady gait.
[2019-05-29] MEDS ORDERED: IBUP-1902 PO (14:57)
== END 2019-05-07 15:08 | disposition home or self-care (01) ==
LOC: ED 12:37
DX: L03.115 Cellulitis of right lower limb (principal); J44.9 Chronic obstructive pulmonary disease, unspecified; F17.200 Nicotine dependence, unspecified, uncomplicated; Z87.19 Personal history of other diseases of the digestive system; Z72.9 Problem related to lifestyle, unspecified
CPT/HCPCS: 36415; 80053; 83605; 85025; 87040; 93005; 96365; 96367; 99284; J0696; J3370; 96372

== ENCOUNTER 2019-09-03 11:08 | Emergency (ER) | payer SELFPAY ==
[~2019-09-03] VITALS: Ht 175.3 cm; Wt 60.0 kg
[2019-09-03] MEDS ORDERED: ALBUTEROL/IPRATROPIUM 2.5MG/0.5MG, 3 ML NPPB ONE (11:30)
[2019-09-03] MEDS ORDERED: ALBUTEROL/IPRATROPIUM 2.5MG/0.5MG, 3 ML ONE (11:52)
[2019-09-03 12:16] VITALS: BP 155/94
[2019-09-03] MEDS ORDERED: AZITHROMYCIN 500 MG TABLET PO ONE (12:30)
[2019-09-03] MEDS ORDERED: CEFDINIR 300 MG CAPSULE PO ONE (12:30)
[2019-09-03 12:36] LABS: BASOPHILS # (AUTO) 0.04 x10^3/uL (0-0.1); BASOPHILS % (AUTO) 1 % (0-1); EOSINOPHILS # (AUTO) 0.08 x10^3/uL (0-0.4); EOSINOPHILS % (AUTO) 1 % (1-7); LYMPHOCYTES # (AUTO) 0.79 x10^3/uL (1-3.4); LYMPHOCYTES % (AUTO) 12 % (22-44); MD NO; MEAN CORPUSCULAR HEMOGLOBIN 33.5 pg (27.5-34.5); MEAN CORPUSCULAR HGB CONC 32.9 g/dL (33.2-36.2); MEAN CORPUSCULAR VOLUME 101.8 fL (81-97); MEAN PLATELET VOLUME 7.3 fL (7.4-10.4); MONOCYTES # (AUTO) 0.55 x10^3/uL (0.2-0.8); MONOCYTES % (AUTO) 8 % (2-9); NEUTROPHILS # (AUTO) 5.08 x10^3/uL (1.8-6.8); NEUTROPHILS % (AUTO) 78 % (42-75); PLATELET COUNT 286 x10^3/uL (130-400); RED BLOOD COUNT 3.91 x10^6/uL (4.38-5.82); RED CELL DISTRIBUTION WIDTH 14.2 % (9.4-14.8)
[2019-09-03] MEDS ORDERED: CEFDINIR 300 MG CAPSULE ONE (12:36)
[2019-09-03] MEDS ORDERED: AZITHROMYCIN 500 MG TABLET ONE (12:36)
[2019-09-03 12:48] LABS: ALBUMIN 3.3 g/dL (3.4-5.0); ANION GAP 6 mmol/L (5-15); CALCIUM 8.7 mg/dL (8.5-10.1); CHLORIDE 107 mmol/L (98-107); CREATININE 0.58 mg/dL (0.7-1.3)
== END 2019-09-03 13:02 | disposition home or self-care (01) ==
LOC: ED 12:37
DX: J18.0 Bronchopneumonia, unspecified organism (principal); M79.10 Myalgia, unspecified site; I10 Essential (primary) hypertension; J44.9 Chronic obstructive pulmonary disease, unspecified; F17.200 Nicotine dependence, unspecified, uncomplicated; F19.90 Other psychoactive substance use, unspecified, uncomplicated; Z72.89 Other problems related to lifestyle
CPT/HCPCS: 36415; 71046; 80048; 82040; 83605; 85025; 87040; 94640; 99284; J7512; J7620

== ENCOUNTER 2019-09-23 21:07 | Emergency (ER) | payer OTHER ==
[~2019-09-23] VITALS: Ht 185.4 cm; Wt 63.6 kg
--- NOTE | 2019-09-23 21:53 | NUR ---
PT RESTING WITH EYES CLOSED, MONITOR IN PLACE.
--- NOTE | 2019-09-23 23:15 | NUR ---
PT RESTING WITH EYES CLOSED. MONITOR IN PLACE.
--- NOTE | 2019-09-24 00:38 | NUR ---
PT RESTING WITH EYES CLOSED. MONITOR IN PLACE.
--- NOTE | 2019-09-24 01:50 | NUR ---
PT RESTING WITH EYES CLOSED. PT AROUSED BRIEFLY. ANSWERED QUESTIONS APPROPRIATELY. MONITOR IN PLACE.
[2019-09-24 02:00] VITALS: BP 131/62
--- NOTE | 2019-09-24 02:55 | NUR ---
PT RESTING WITH EYES CLOSED. MONITOR IN PLACE.
--- NOTE | 2019-09-24 03:39 | NUR ---
PT RESTING WITH EYES CLOSED. MONITOR IN PLACE.
== END 2019-09-24 04:50 | disposition home or self-care (01) ==
LOC: ED 21:27
DX: F10.120 Alcohol abuse with intoxication, uncomplicated (principal); J44.9 Chronic obstructive pulmonary disease, unspecified; I10 Essential (primary) hypertension; Y90.0 Blood alcohol level of less than 20 mg/100 ml
CPT/HCPCS: 36415; 80307; 99283

== ENCOUNTER 2019-10-09 06:12 | Emergency (ER) | payer SELFPAY ==
[~2019-10-09] VITALS: Ht 175.3 cm; Wt 57.0 kg
--- NOTE | 2019-10-09 06:27 | NUR ---
Pt BIB [facility] with c/o N/V, R arm numbness/tingling, and cough. Pt states heavy ETOH abuse, last drink yesterday. Pt states he believes he is withdrawing from alcohol. Pt placed in gown, positioned for comfort in bed with warm blankets. All safety measures observed. Dr. Olivarez at bedside to evaluate pt.
--- NOTE | 2019-10-09 06:35 | NUR ---
TP RN: RT PAGED.
[2019-10-09] MEDS ORDERED: ALBUTEROL/IPRATROPIUM 2.5MG/0.5MG, 3 ML ONE (06:39)
[2019-10-09] MEDS ORDERED: LORazepam 2 MG/ML, 1ML ONE (06:44)
--- NOTE | 2019-10-09 06:52 | NUR ---
Pt medicated per DEC. Report to Jennifer LOUIE.
[2019-10-09] MEDS ORDERED: ALBUTEROL/IPRATROPIUM 2.5MG/0.5MG, 3 ML NPPB ONE (07:00)
[2019-10-09] MEDS ORDERED: LORazepam 2 MG/ML, 1ML IVPush ONE (07:00)
[2019-10-09] MEDS ORDERED: SODIUM CHLORIDE FLUSH 10ML SYR IVF ONE (07:00)
[2019-10-09 07:02] LABS: BASOPHILS # (AUTO) 0.02 x10^3/uL (0-0.1); BASOPHILS % (AUTO) 1 % (0-1); EOSINOPHILS # (AUTO) 0.09 x10^3/uL (0-0.4); EOSINOPHILS % (AUTO) 2 % (1-7); LYMPHOCYTES # (AUTO) 0.69 x10^3/uL (1-3.4); LYMPHOCYTES % (AUTO) 18 % (22-44); MD NO; MEAN CORPUSCULAR HEMOGLOBIN 32.2 pg (27.5-34.5); MEAN CORPUSCULAR HGB CONC 33.2 g/dL (33.2-36.2); MONOCYTES # (AUTO) 0.49 x10^3/uL (0.2-0.8); MONOCYTES % (AUTO) 13 % (2-9); NEUTROPHILS # (AUTO) 2.64 x10^3/uL (1.8-6.8); NEUTROPHILS % (AUTO) 67 % (42-75); PLATELET COUNT 205 x10^3/uL (130-400); RED BLOOD COUNT 3.78 x10^6/uL (4.38-5.82); RED CELL DISTRIBUTION WIDTH 15.2 % (9.4-14.8)
[2019-10-09 07:06] LABS: ALANINE AMINOTRANSFERASE 25 U/L (12-78); ALBUMIN 3.4 g/dL (3.4-5.0); ANION GAP 9 mmol/L (5-15); CALCIUM 7.9 mg/dL (8.5-10.1); CHLORIDE 106 mmol/L (98-107); CREATININE 0.67 mg/dL (0.7-1.3)
--- NOTE | 2019-10-09 07:10 | NUR ---
ASSUMED CARE. LAB AT BEDSIDE AND THEN BEDSIDE XRAY OBTAINED BY TECH. IV ESTABLISHED AND MEDICATED WITH ATIVAN PER ORDERS. PLACED ON MONITOR. AFTER ATIVAN GIVEN, O2 SATURATION 88 PERCENT. PLACED ON 2L NC. PT NOW RESTING WITH EYES CLOSED.
[2019-10-09 07:11] LABS: ALKALINE PHOSPHATASE 93 U/L (45-117); BILIRUBIN,TOTAL 0.6 mg/dL (0.2-1.0); TOTAL PROTEIN 7.6 g/dL (6.4-8.2); TROPONIN I < 0.015 ng/mL (0.000-0.045)
[2019-10-09 07:29] VITALS: BP 149/83
--- NOTE | 2019-10-09 08:40 | NUR ---
ambulated to bathroom with use of cane, steady gait, and then to discharge window.
== END 2019-10-09 08:41 | disposition home or self-care (01) ==
LOC: ED 07:23
DX: F10.239 Alcohol dependence with withdrawal, unspecified (principal); F10.20 Alcohol dependence, uncomplicated; J44.9 Chronic obstructive pulmonary disease, unspecified; I10 Essential (primary) hypertension; F17.200 Nicotine dependence, unspecified, uncomplicated; Y90.0 Blood alcohol level of less than 20 mg/100 ml
CPT/HCPCS: 36415; 71045; 80053; 83735; 83880; 84484; 85025; 93005; 94640; 96374; 99284; J2060; J7512; J7620

== ENCOUNTER 2019-10-23 20:56 | Emergency (ER) | payer SELFPAY ==
[~2019-10-23] VITALS: Ht 167.6 cm; Wt 68.0 kg
--- NOTE | 2019-10-23 21:14 | NUR ---
PT CHETAN KRUSE FROM [facility] FOR ABD PAIN AND CONSTIPATION AFTER DRINKING 1/2PINT VODKA. PT +ETOH AND BED BUGS. PT TO [facility] ROOM ON ARRIVAL TO ED. PT IS IN RM PT C/O ABDOMEN PAIN PER MED TECH AFTER [facility] NO BED BUG HAS SEEN VSS STABLE CALL LIGHT WITHIN REACH PT IS WATING FOR ERP EVAL
[2019-10-23] MEDS ORDERED: THIAMINE 100MG TABLET ONE (22:09)
[2019-10-23] MEDS ORDERED: ONDANSETRON ODT 4 MG ONE (22:10)
--- NOTE | 2019-10-23 22:17 | NUR ---
PATIENT MEDICATED PER EMAR, TOELRATED WELL. VSS, NAD ,CALL LIGHT IN REACH. BLEACH CHLORINATOR IN ROOM DOCUMENT RESTORER IN ROOM FOR EKG
[2019-10-23 22:27] LABS: BASOPHILS # (AUTO) 0.03 x10^3/uL (0-0.1); BASOPHILS % (AUTO) 1 % (0-1); EOSINOPHILS # (AUTO) 0.19 x10^3/uL (0-0.4); EOSINOPHILS % (AUTO) 4 % (1-7); LYMPHOCYTES # (AUTO) 0.86 x10^3/uL (1-3.4); LYMPHOCYTES % (AUTO) 20 % (22-44); MD NO; MEAN CORPUSCULAR HEMOGLOBIN 31.9 pg (27.5-34.5); MEAN CORPUSCULAR HGB CONC 32.7 g/dL (33.2-36.2); MEAN CORPUSCULAR VOLUME 97.8 fL (81-97); MEAN PLATELET VOLUME 6.7 fL (7.4-10.4); MONOCYTES # (AUTO) 0.44 x10^3/uL (0.2-0.8); MONOCYTES % (AUTO) 10 % (2-9); NEUTROPHILS # (AUTO) 2.81 x10^3/uL (1.8-6.8); NEUTROPHILS % (AUTO) 65 % (42-75); PLATELET COUNT 301 x10^3/uL (130-400); RED BLOOD COUNT 4.09 x10^6/uL (4.38-5.82); RED CELL DISTRIBUTION WIDTH 15.8 % (9.4-14.8)
[2019-10-23] MEDS ORDERED: THIAMINE 100MG TABLET PO ONE (22:30)
[2019-10-23] MEDS ORDERED: ONDANSETRON ODT 4 MG PO ONE (22:30)
[2019-10-23 22:40] LABS: ALANINE AMINOTRANSFERASE 26 U/L (12-78); ALBUMIN 3.6 g/dL (3.4-5.0); ANION GAP 8 mmol/L (5-15); CALCIUM 8.2 mg/dL (8.5-10.1); CHLORIDE 110 mmol/L (98-107); CREATININE 0.61 mg/dL (0.7-1.3)
[2019-10-23 22:44] LABS: ALKALINE PHOSPHATASE 87 U/L (45-117); BILIRUBIN,TOTAL 0.2 mg/dL (0.2-1.0); TOTAL PROTEIN 8.3 g/dL (6.4-8.2); TROPONIN I < 0.015 ng/mL (0.000-0.045)
[2019-10-23] MEDS ORDERED: AZITHROMYCIN 250 MG TABLET ONE (23:21)
--- NOTE | 2019-10-23 23:27 | NUR ---
PATIENT REFUSED CLOTHING FROM ED.
--- NOTE | 2019-10-23 23:27 | NUR ---
patient medicated per emar, toelrated well. given discharge instructions. patient to get dressed at this time
[2019-10-23 23:29] VITALS: BP 108/64
[2019-10-23] MEDS ORDERED: AZITHROMYCIN 500 MG TABLET PO ONE (23:30)
--- NOTE | 2019-10-23 23:40 | NUR ---
CALL PLACED TO SECURITY TO ESCORT PATIENT OUT OF ROOM
--- NOTE | 2019-10-23 23:40 | NUR ---
PATIENT SPOKE TO TWICE NEED TO GET DRESS, GIVEN DISCHARGE INSTRUCTIONS ,VSS, PATIENT REFUSING TO LEAVE OR GET OUT OF GURNEY
--- NOTE | 2019-10-24 00:07 | NUR ---
PATIENT STOOLED IN BED WHILE GETTING CLOTHES ON. PATIENT CLEANED. PATIENT PUTTING CLOTHES ON. SECURITY TO ASSIST PATIENT IN GETTING OUT OF ROOM
--- NOTE | 2019-10-24 00:15 | NUR ---
PATIENT ESCORTED OUT BY KEREN
[2019-10-24] MEDS ORDERED: LIDOCAINE-MPF 1%, 5ML ONE (18:25)
== END 2019-10-24 00:15 | disposition home or self-care (01) ==
LOC: ED 22:52
DX: K29.20 Alcoholic gastritis without bleeding (principal); F10.10 Alcohol abuse, uncomplicated; R05 Cough; F17.210 Nicotine dependence, cigarettes, uncomplicated; J44.9 Chronic obstructive pulmonary disease, unspecified; I10 Essential (primary) hypertension; Y90.0 Blood alcohol level of less than 20 mg/100 ml
CPT/HCPCS: 36415; 71045; 80053; 83690; 84484; 85025; 93005; 99284; Q0162

== ENCOUNTER 2019-11-18 22:08 | Emergency (ER) | payer MEDICAID, OTHER ==
[~2019-11-18] VITALS: Ht 167.6 cm; Wt 62.5 kg
--- NOTE | 2019-11-18 22:24 | NUR ---
CHETAN KRUSE FROM [facility]. PT C/O ESPINOZA AND HEARING THINGS, NOISES THAT AREN'T THERE, STARTING THIS AFTERNOON. PT CHRONIC ETOH, LAST DRINK YESTERDAY. PT CONNECTED TO MONITORING. CALL LIGHT IN REACH. AWAITING ORDERS AT THIS TIME.
[2019-11-18] MEDS ORDERED: THIAMINE 100MG TABLET PO ONE (23:00)
[2019-11-18] MEDS ORDERED: FOLIC ACID 1 MG TABLET PO ONE (23:00)
[2019-11-18] MEDS ORDERED: SODIUM CHLORIDE 0.9% 1,000ML IVBOLUS ONE (23:00)
[2019-11-18] MEDS ORDERED: ONDANSETRON 2MG/ML, 2ML IVPush ONE (23:00)
[2019-11-18] MEDS ORDERED: ONDANSETRON 2MG/ML, 2ML ONE (23:15)
[2019-11-18] MEDS ORDERED: THIAMINE 100MG TABLET ONE (23:15)
--- NOTE | 2019-11-18 23:24 | NUR ---
IV START BY TASK RN. LABS DRAWN. IVF STARTED, MEDS ADMIN PER DEC. PT AWARE OF NEED FOR URINE SAMPLE, STATES CAN'T URINATE AT THIS TIME. PT PLACED ON OXYGEN 2L VIA NC FOR O2 LEVEL OF 88% RA. PT COMPLIANT WITH CARE.
[2019-11-18 23:26] LABS: BASOPHILS # (AUTO) 0.06 x10^3/uL (0-0.1); BASOPHILS % (AUTO) 1 % (0-1); EOSINOPHILS # (AUTO) 0.12 x10^3/uL (0-0.4); EOSINOPHILS % (AUTO) 2 % (1-7); LYMPHOCYTES # (AUTO) 1.24 x10^3/uL (1-3.4); LYMPHOCYTES % (AUTO) 23 % (22-44); MD NO; MEAN CORPUSCULAR HEMOGLOBIN 31.5 pg (27.5-34.5); MEAN CORPUSCULAR HGB CONC 32.9 g/dL (33.2-36.2); MEAN CORPUSCULAR VOLUME 95.6 fL (81-97); MONOCYTES # (AUTO) 0.58 x10^3/uL (0.2-0.8); MONOCYTES % (AUTO) 11 % (2-9); NEUTROPHILS # (AUTO) 3.38 x10^3/uL (1.8-6.8); NEUTROPHILS % (AUTO) 63 % (42-75); PLATELET COUNT 287 x10^3/uL (130-400); RED BLOOD COUNT 4.17 x10^6/uL (4.38-5.82); RED CELL DISTRIBUTION WIDTH 17.1 % (9.4-14.8)
[2019-11-18 23:36] LABS: ALANINE AMINOTRANSFERASE 22 U/L (12-78); ALBUMIN 3.5 g/dL (3.4-5.0); ANION GAP 11 mmol/L (5-15); CALCIUM 8.3 mg/dL (8.5-10.1); CHLORIDE 99 mmol/L (98-107); CREATININE 0.67 mg/dL (0.7-1.3)
[2019-11-18 23:38] LABS: ALKALINE PHOSPHATASE 89 U/L (45-117); BILIRUBIN,TOTAL 0.5 mg/dL (0.2-1.0); TOTAL PROTEIN 9.1 g/dL (6.4-8.2)
--- NOTE | 2019-11-18 23:57 | NUR ---
MEDS ADMIN PER DEC. PT GIVEN WARM BLANKET.
[2019-11-19] MEDS ORDERED: ALBUTEROL/IPRATROPIUM 2.5MG/0.5MG, 3 ML NPPB ONE
--- NOTE | 2019-11-19 00:01 | NUR ---
REPORT GIVEN TO NATALYA LOUIE.
[2019-11-19] MEDS ORDERED: ALBUTEROL/IPRATROPIUM 2.5MG/0.5MG, 3 ML ONE (00:12)
[2019-11-19 01:54] LABS: MICROSCOPIC INDICATED
[2019-11-19 02:03] LABS: CULTURE INDICATED? NO
[2019-11-19 02:05] LABS: AMPHETAMINE SCREEN, URINE Negative (Negative); BARBITURATE SCREEN, URINE Negative (Negative); BENZODIAZEPINE SCREEN, URINE Negative (Negative); CANNABINOID SCREEN, URINE Negative (Negative); COCAINE SCREEN, URINE Negative (Negative); METHADONE SCREEN, URINE Negative (Negative); OPIATE SCREEN, URINE Negative (Negative)
[2019-11-19 03:00] VITALS: BP 130/82
== END 2019-11-19 03:43 | disposition home or self-care (01) ==
LOC: ED 11-19 01:32
DX: J44.1 Chronic obstructive pulmonary disease with (acute) exacerbation (principal); F10.220 Alcohol dependence with intoxication, uncomplicated; J20.9 Acute bronchitis, unspecified; F17.210 Nicotine dependence, cigarettes, uncomplicated; I10 Essential (primary) hypertension; R42 Dizziness and giddiness; Y90.0 Blood alcohol level of less than 20 mg/100 ml
CPT/HCPCS: 36415; 71045; 80053; 80307; 81001; 83690; 85025; 94640; 96361; 96374; 99284; 99406; J2405; J7030; J7512; J7620

== ENCOUNTER 2020-01-07 06:48 | Inpatient (IN) | payer MEDICAID, OTHER ==
[~2020-01-07] VITALS: Ht 175.3 cm; Wt 56.2 kg
[~2020-01-07 06:48] MED LIST changes: +ALBU90AE INH; +BUDE10.2 INH; +CEFD300C37 PO; +DOXY100T PO; +GUAI200T37 PO; +POTA20TA6 PO; +PRED20TA PO; +TIOT18CA INH
--- NOTE | 2020-01-07 07:11 | NUR ---
REPORT RECEIVED FROM JACY ORTIZ. [facility]
--- NOTE | 2020-01-07 07:50 | NUR ---
PT RESTING IN [facility]. NO NEEDS AT THIS TIME. VSS. NAD.
[2020-01-07 08:14] LABS: ALANINE AMINOTRANSFERASE 18 U/L (12-78); ALBUMIN 3.4 g/dL (3.4-5.0); ANION GAP 9 mmol/L (5-15); CALCIUM 8.7 mg/dL (8.5-10.1); CHLORIDE 102 mmol/L (98-107)
[2020-01-07 08:18] LABS: ALKALINE PHOSPHATASE 90 U/L (45-117); BASOPHILS # (AUTO) 0.02 x10^3/uL (0-0.1); BASOPHILS % (AUTO) 0 % (0-1); BILIRUBIN,TOTAL 0.9 mg/dL (0.2-1.0); EOSINOPHILS # (AUTO) 0.12 x10^3/uL (0-0.4); EOSINOPHILS % (AUTO) 2 % (1-7); LYMPHOCYTES # (AUTO) 0.82 x10^3/uL (1-3.4); LYMPHOCYTES % (AUTO) 16 % (22-44); MD NO; MEAN CORPUSCULAR HEMOGLOBIN 30.9 pg (27.5-34.5); MEAN CORPUSCULAR HGB CONC 32.9 g/dL (33.2-36.2); MEAN CORPUSCULAR VOLUME 93.8 fL (81-97); MEAN PLATELET VOLUME 7.7 fL (7.4-10.4); MONOCYTES # (AUTO) 0.74 x10^3/uL (0.2-0.8); MONOCYTES % (AUTO) 14 % (2-9); NEUTROPHILS # (AUTO) 3.51 x10^3/uL (1.8-6.8); NEUTROPHILS % (AUTO) 67 % (42-75); PLATELET COUNT 201 x10^3/uL (130-400); RED BLOOD COUNT 4.14 x10^6/uL (4.38-5.82); TOTAL PROTEIN 7.9 g/dL (6.4-8.2); TROPONIN I < 0.015 ng/mL (0.000-0.045)
[2020-01-07] MEDS ORDERED: AZITHROMYCIN 500 MG in SODIUM CHLORIDE 0.9% 250 ML IVPB ONE (08:30)
[2020-01-07] MEDS ORDERED: CEFTRIAXONE PMX 1GM/50ML 50 ML IVPB ONE (08:30)
[2020-01-07] MEDS ORDERED: CEFTRIAXONE PMX 1GM/50ML 50 ML ONE (08:44)
--- NOTE | 2020-01-07 08:50 | NUR ---
PT RESTING IN BED WATCHING TV. MEDICATED PER MAR
[2020-01-07] MEDS ORDERED: SODIUM CHLORIDE FLUSH 10ML SYR IVF PRN (09:00)
--- NOTE | 2020-01-07 09:07 | NUR ---
[facility]#: [id number]
[2020-01-07] MEDS ORDERED: ACETAMINOPHEN 500 MG TABLET ONE (09:15)
[2020-01-07] MEDS ORDERED: hydrALAzine 20 MG/ML, 1ML IVPush PRN (09:30)
[2020-01-07] MEDS ORDERED: ACETAMINOPHEN 500 MG TABLET PO ONE (09:30)
[2020-01-07] MEDS ORDERED: CEFTRIAXONE PMX 1GM/50ML 50 ML IV SCH (09:30)
[2020-01-07] MEDS ORDERED: LIDODERM 5% PATCH TD PRN (09:30)
[2020-01-07] MEDS ORDERED: POLYETHYLENE GLYCOL 17 GM PACKET PO PRN (09:30)
[2020-01-07] MEDS ORDERED: GUAIFENESIN/DM 200-20MG, 10ML UDC PO PRN (09:30)
[2020-01-07] MEDS ORDERED: ONDANSETRON 2MG/ML, 2ML IVPush PRN (09:30)
[2020-01-07] MEDS ORDERED: BISACODYL 10 MG SUPP PR PRN (09:30)
[2020-01-07] MEDS ORDERED: ONDANSETRON ODT 4 MG PO PRN (09:30)
[2020-01-07] MEDS ORDERED: ZOLPIDEM 5MG TABLET PO PRN (09:30)
--- NOTE | 2020-01-07 09:47 | NUR ---
ADMITTING HOSPITALIST ORDERED BLOOD CULTURES X 2. HOWEVER, PT WAS DOSED WITH ABX OVER AN HOUR BEFORE THAT ORDER WAS MADE
[2020-01-07 10:13] LABS: FREE T4 (FREE THYROXINE) 0.94 ng/dL (0.76-1.46)
[2020-01-07 10:32] LABS: HCT (SEDRATE) 38.9 % (39.2-51.8)
[2020-01-07] MEDS ORDERED: IPRATROPIUM 0.5 MG/2.5 ML INHA NPPB PRN (11:00)
[2020-01-07] MEDS ORDERED: ALBUTEROL SULFATE 2.5MG/0.5ML NPPB PRN (11:00)
[2020-01-07] MEDS ORDERED: BUDESONIDE 0.5 MG/2 ML INHA NPPB SCH (11:00)
[2020-01-07] MEDS ORDERED: ALBUTEROL HFA 90 MCG/SPRAY INH PRN (11:30)
[2020-01-07] MEDS: GUAIFENESIN 200 MG TABLET PO SCH ×3 (11:33→21:30)
[2020-01-07] MEDS: NS + 20MEQ KCL 1,000 ML IV SCH ×2 (11:33→21:31)
[2020-01-07] MEDS: NICOTINE 21 MG/24 HR PATCH.TD24 TD SCH (11:33)
[2020-01-07] MEDS: ENOXAPARIN 40 MG/0.4 ML SQ SCH (11:33)
[2020-01-07 15:02] VITALS: BP 120/78
[2020-01-07 17:37] LABS: CLOSTRIDIUM DIFFICILE ANTIGEN NEGATIVE; CLOSTRIDIUM DIFFICILE TOXIN NEGATIVE (Negative)
[2020-01-07] MEDS: FAMOTIDINE 20 MG TABLET PO SCH (21:30)
[2020-01-07] MEDS: CEFTRIAXONE PMX 1GM/50ML 50 ML IV SCH (21:30)
[2020-01-07 21:50] VITALS: BP 126/70
[2020-01-07] MEDS: ACETAMINOPHEN 325 MG TABLET PO PRN (22:07)
[2020-01-08 04:10] VITALS: BP 122/76
[2020-01-08 06:14] LABS: ALBUMIN 2.9 g/dL (3.4-5.0); ANION GAP 7 mmol/L (5-15); CALCIUM 8.4 mg/dL (8.5-10.1); CHLORIDE 108 mmol/L (98-107)
[2020-01-08 06:17] LABS: ALANINE AMINOTRANSFERASE 14 U/L (12-78); ALKALINE PHOSPHATASE 80 U/L (45-117); BILIRUBIN,TOTAL 0.6 mg/dL (0.2-1.0); CREATININE 0.53 mg/dL (0.7-1.3); TOTAL PROTEIN 6.9 g/dL (6.4-8.2)
[2020-01-08 06:26] LABS: BASOPHILS # (AUTO) 0.06 x10^3/uL (0-0.1); BASOPHILS % (AUTO) 2 % (0-1); EOSINOPHILS # (AUTO) 0.14 x10^3/uL (0-0.4); EOSINOPHILS % (AUTO) 4 % (1-7); LYMPHOCYTES # (AUTO) 0.78 x10^3/uL (1-3.4); LYMPHOCYTES % (AUTO) 20 % (22-44); MD NO; MEAN CORPUSCULAR HEMOGLOBIN 31.1 pg (27.5-34.5); MEAN CORPUSCULAR HGB CONC 32.7 g/dL (33.2-36.2); MEAN CORPUSCULAR VOLUME 95.3 fL (81-97); MEAN PLATELET VOLUME 8.2 fL (7.4-10.4); MONOCYTES # (AUTO) 0.61 x10^3/uL (0.2-0.8); MONOCYTES % (AUTO) 15 % (2-9); NEUTROPHILS # (AUTO) 2.42 x10^3/uL (1.8-6.8); NEUTROPHILS % (AUTO) 60 % (42-75); PLATELET COUNT 171 x10^3/uL (130-400); RED CELL DISTRIBUTION WIDTH 18.9 % (9.4-14.8)
[2020-01-08] MEDS: GUAIFENESIN 200 MG TABLET PO SCH ×4 (06:30→22:18)
[2020-01-08] MEDS: NS + 20MEQ KCL 1,000 ML IV SCH (06:30)
[2020-01-08] MEDS: CEFTRIAXONE PMX 1GM/50ML 50 ML IV SCH ×2 (07:52→22:18)
[2020-01-08] MEDS: AZITHROMYCIN 250 MG TABLET PO SCH (07:52)
[2020-01-08] MEDS: FAMOTIDINE 20 MG TABLET PO SCH ×2 (07:52→22:18)
[2020-01-08 08:08] VITALS: BP 104/69
[2020-01-08] MEDS: NICOTINE 21 MG/24 HR PATCH.TD24 TD SCH (11:51)
[2020-01-08] MEDS: ENOXAPARIN 40 MG/0.4 ML SQ SCH (11:52)
[2020-01-08 12:03] VITALS: BP 105/74
[2020-01-08 18:38] VITALS: BP 133/72
[2020-01-08] MEDS: ACETAMINOPHEN 325 MG TABLET PO PRN (22:18)
[2020-01-08] MEDS: methylPREDNISolone SOD SUCC 40 MG/ML IV SCH (22:18)
[2020-01-09 01:24] VITALS: BP 147/89
[2020-01-09] MEDS: methylPREDNISolone SOD SUCC 40 MG/ML IV SCH ×3 (06:04→22:22)
[2020-01-09] MEDS: GUAIFENESIN 200 MG TABLET PO SCH ×4 (06:04→20:35)
[2020-01-09 08:26] VITALS: BP 130/85
[2020-01-09] MEDS: CEFTRIAXONE PMX 1GM/50ML 50 ML IV SCH (10:20)
[2020-01-09] MEDS: NICOTINE 21 MG/24 HR PATCH.TD24 TD SCH (10:21)
[2020-01-09] MEDS: AZITHROMYCIN 250 MG TABLET PO SCH (10:21)
[2020-01-09] MEDS: FAMOTIDINE 20 MG TABLET PO SCH ×2 (10:21→20:35)
[2020-01-09] MEDS: ENOXAPARIN 40 MG/0.4 ML SQ SCH (10:21)
[2020-01-09 14:10] VITALS: BP 126/77
[2020-01-09] MEDS: ACETAMINOPHEN 325 MG TABLET PO PRN (15:56)
[2020-01-09] MEDS: CEFDINIR 300 MG CAPSULE PO SCH (18:00)
[2020-01-09 18:41] VITALS: BP 147/56
[2020-01-10 01:11] VITALS: BP 155/91
[2020-01-10] MEDS: ACETAMINOPHEN 325 MG TABLET PO PRN (04:42)
[2020-01-10] MEDS: GUAIFENESIN 200 MG TABLET PO SCH ×2 (06:04→10:57)
[2020-01-10] MEDS: methylPREDNISolone SOD SUCC 40 MG/ML IV SCH (06:04)
[2020-01-10] MEDS: CEFDINIR 300 MG CAPSULE PO SCH (06:04)
[2020-01-10 06:53] VITALS: BP 134/77
[2020-01-10] MEDS: FAMOTIDINE 20 MG TABLET PO SCH (08:14)
[2020-01-10] MEDS ORDERED: AZITHROMYCIN 250 MG TABLET PO SCH (09:00)
[2020-01-10] MEDS ORDERED: LEVO750T26 PO (09:49)
[2020-01-10] MEDS: ENOXAPARIN 40 MG/0.4 ML SQ SCH (10:58)
[2020-01-10] MEDS: NICOTINE 21 MG/24 HR PATCH.TD24 TD SCH (10:59)
== END 2020-01-10 12:14 | disposition home or self-care (01) | DRG 133 ==
LOC: ED 07:39 → SUATTDRO 08:44 → EDIP 08:48 → 3WST 09:47 → 3N 01-08 17:15
PROVIDERS: ADMIT Hospitalist; ATTEND Family Medicine
DX: J96.01 Acute respiratory failure with hypoxia (principal); J15.9 Unspecified bacterial pneumonia; E87.1 Hypo-osmolality and hyponatremia; J43.9 Emphysema, unspecified; F10.20 Alcohol dependence, uncomplicated; F17.210 Nicotine dependence, cigarettes, uncomplicated; G40.909 Epilepsy, unspecified, not intractable, without status epilepticus; I10 Essential (primary) hypertension; Z03.818 Encounter for observation for suspected exposure to other biological agents ruled out; Z59.0 Homelessness; Z91.14 Patient's other noncompliance with medication regimen; Z88.8 Allergy status to other drugs, medicaments and biological substances; Z71.6 Tobacco abuse counseling
CPT/HCPCS: 36415; 71045; 80053; 83735; 83880; 84100; 84439; 84443; 84484; 85025; 85651; 86480; 87040; 87070; 87205; 87324; 89055; 93005; 99285; G0378; J0696; J1650; J3480; J2920

== ENCOUNTER 2020-02-15 14:40 | Emergency (ER) | payer MEDICAID ==
[~2020-02-15] VITALS: Ht 175.3 cm; Wt 56.3 kg
[~2020-02-15 14:40] MED LIST changes: +LEVO750T26 PO
--- NOTE | 2020-02-15 18:10 | NUR ---
EMPLOYEE RELATIONS SPECIALIST: PT TO ROOM FROM LOBBY
[2020-02-15] MEDS ORDERED: HYDROcodone/APAP 5/325 TABLET PO STA (19:14)
[2020-02-15] MEDS ORDERED: ONDANSETRON ODT 4 MG ONE (19:27)
[2020-02-15] MEDS ORDERED: HYDROcodone/APAP 5/325 TABLET ONE (19:28)
[2020-02-15] MEDS ORDERED: ONDANSETRON ODT 4 MG PO ONE (19:30)
[2020-02-15] MEDS ORDERED: HYDROcodone/APAP 5/325 TABLET PO ONE (20:00)
[2020-02-15 20:14] VITALS: BP 127/89
== END 2020-02-15 20:16 | disposition home or self-care (01) ==
LOC: ED 18:18
DX: S42.292A Other displaced fracture of upper end of left humerus, initial encounter for closed fracture (principal); R00.0 Tachycardia, unspecified; I10 Essential (primary) hypertension; J44.9 Chronic obstructive pulmonary disease, unspecified; F17.210 Nicotine dependence, cigarettes, uncomplicated; G40.909 Epilepsy, unspecified, not intractable, without status epilepticus; W18.30XA Fall on same level, unspecified, initial encounter; Y93.89 Activity, other specified; Y92.009 Unspecified place in unspecified non-institutional (private) residence as the place of occurrence of the external cause; Y99.8 Other external cause status
CPT/HCPCS: 73030; 93005; 99283; Q0162

== ENCOUNTER 2020-03-09 22:46 | Emergency (ER) | payer MEDICAID ==
[~2020-03-09] VITALS: Ht 175.3 cm; Wt 57.0 kg
[~2020-03-09 22:46] MED LIST changes: +MULT-449 PO; -MULT1TAB60 PO
[2020-03-09 22:56] VITALS: BP 141/71
--- NOTE | 2020-03-09 23:00 | NUR ---
THIS IS A 59Y M BIB EMS FROM [place], PT REPORTS SZ DESCRIBED SHAKES AND A LITTLE DIZZY PT DENIES LOC/ PT WAS ABLE TO WALK TO STORE AND REQ AMBULANCE AND STATE I AM HAVING A SZ. UPON ARRIVAL PT A/O X4 REPORTS GETTING COLD AND HAVING TO GET GOING BEFORE IT GOT COLDER. PT CONNECTED TO ALL MONITORING KAMALJITSNADN. BALDERAS TO ASSESS PT
[2020-03-09 23:37] LABS: ALBUMIN 4.1 g/dL (3.4-5.0); ANION GAP 10 mmol/L (5-15); CALCIUM 8.8 mg/dL (8.5-10.1); CHLORIDE 99 mmol/L (98-107); CREATININE 0.58 mg/dL (0.7-1.3)
[2020-03-09 23:59] LABS: BASOPHILS # (AUTO) 0.03 x10^3/uL (0-0.1); BASOPHILS % (AUTO) 1 % (0-1); EOSINOPHILS % (AUTO) 6 % (1-7); LYMPHOCYTES # (AUTO) 1.25 x10^3/uL (1-3.4); LYMPHOCYTES % (AUTO) 35 % (22-44); MD NO; MEAN CORPUSCULAR HEMOGLOBIN 31.7 pg (27.5-34.5); MEAN CORPUSCULAR HGB CONC 32.4 g/dL (33.2-36.2); MEAN CORPUSCULAR VOLUME 98.1 fL (81-97); MEAN PLATELET VOLUME 6.8 fL (7.4-10.4); MONOCYTES # (AUTO) 0.44 x10^3/uL (0.2-0.8); MONOCYTES % (AUTO) 12 % (2-9); NEUTROPHILS # (AUTO) 1.66 x10^3/uL (1.8-6.8); NEUTROPHILS % (AUTO) 46 % (42-75); PLATELET COUNT 286 x10^3/uL (130-400); RED BLOOD COUNT 4.28 x10^6/uL (4.38-5.82); RED CELL DISTRIBUTION WIDTH 18.5 % (9.4-14.8)
== END 2020-03-10 01:13 | disposition home or self-care (01) ==
LOC: ED 23:20
DX: F10.120 Alcohol abuse with intoxication, uncomplicated (principal); G40.909 Epilepsy, unspecified, not intractable, without status epilepticus; R94.31 Abnormal electrocardiogram [ECG] [EKG]; Z72.9 Problem related to lifestyle, unspecified; I10 Essential (primary) hypertension; J44.9 Chronic obstructive pulmonary disease, unspecified; F17.200 Nicotine dependence, unspecified, uncomplicated; Y90.9 Presence of alcohol in blood, level not specified
CPT/HCPCS: 36415; 80048; 80307; 82040; 85025; 93005; 99284

== ENCOUNTER 2020-03-10 06:57 | Emergency (ER) | payer MEDICAID ==
[~2020-03-10] VITALS: Ht 175.3 cm; Wt 55.0 kg
[~2020-03-10 06:57] MED LIST changes: -MULT-449 PO; +MULT1TAB60 PO
[2020-03-10] MEDS ORDERED: SODIUM CHLORIDE 0.9% 1,000ML IVBOLUS ONE (07:30)
[2020-03-10] MEDS ORDERED: LORazepam 2 MG/ML, 1ML IVPush PRN (07:30)
[2020-03-10] MEDS ORDERED: THIAMINE 100 MG in SODIUM CHLORIDE 0.9% 50 ML IVPB ONE (07:30)
[2020-03-10] MEDS ORDERED: SODIUM CHLORIDE FLUSH 10ML SYR IVF ONE (07:30)
--- NOTE | 2020-03-10 07:34 | NUR ---
PT SEEN HERE LAST NIGHT, FOR WEAKNESS. RTN THIS AM 2/2 TO WEAKNESS AND "FEELING COLD" STATES WHEN HE WOKE THIS AM HE FELL TO FLOOR AT [facility] 2/2 TO WEAKNESS. BIB EMS FROM [facility]. PT IS DESHVLED, DIRTY, CLOTHES ARE WET WITH SMELL OF URINE. ALL CLOTHES REMOVED WITH RN ASSIST, WARM BLANKETS PROVIDED, CALL LIGHT W/I REACH. PT VERBALIZES UNDERSTANDING TO USE CALL LIGHT FOR ASSISTANCE AND NOT TO GET OOB W/O HELP. DR SANABRIA AT BEDSIDE. PT ASSESSEMT POC DISCUSSED AND ORDERS REC'D.
[2020-03-10] MEDS ORDERED: LORazepam 2 MG/ML, 1ML ONE (07:39)
--- NOTE | 2020-03-10 08:18 | NUR ---
DIFFICULT VENOUS ACCESS. RIGHT EJ INSERTED BY JACY TAM. PT MED NOTED. IVF INFUSING W/O DIFFICULTY.
--- NOTE | 2020-03-10 08:19 | NUR ---
PT C/O PAIN LEFT ARM. INFORMED, ORDER REC'D
[2020-03-10 08:22] LABS: ALANINE AMINOTRANSFERASE 26 U/L (12-78); ALBUMIN 3.9 g/dL (3.4-5.0); ANION GAP 7 mmol/L (5-15); CALCIUM 8.7 mg/dL (8.5-10.1); CHLORIDE 102 mmol/L (98-107); CREATININE 0.61 mg/dL (0.7-1.3)
[2020-03-10 08:24] LABS: ALKALINE PHOSPHATASE 120 U/L (45-117); BILIRUBIN,TOTAL 0.7 mg/dL (0.2-1.0); TOTAL PROTEIN 8.5 g/dL (6.4-8.2)
--- NOTE | 2020-03-10 08:30 | NUR ---
lab needs to redraw pt
[2020-03-10] MEDS ORDERED: IBUPROFEN 600 MG TABLET ONE (08:38)
--- NOTE | 2020-03-10 08:40 | NUR ---
PT MED NOTED FOR LEFT ARM PAIN. PAIN 2/2 PRIOR INJURY
[2020-03-10 08:55] LABS: BASOPHILS # (AUTO) 0.05 x10^3/uL (0-0.1); BASOPHILS % (AUTO) 1 % (0-1); EOSINOPHILS # (AUTO) 0.12 x10^3/uL (0-0.4); EOSINOPHILS % (AUTO) 3 % (1-7); LYMPHOCYTES # (AUTO) 0.67 x10^3/uL (1-3.4); LYMPHOCYTES % (AUTO) 19 % (22-44); MD NO; MEAN CORPUSCULAR HEMOGLOBIN 31.9 pg (27.5-34.5); MEAN CORPUSCULAR HGB CONC 32.7 g/dL (33.2-36.2); MEAN CORPUSCULAR VOLUME 97.5 fL (81-97); MEAN PLATELET VOLUME 6.3 fL (7.4-10.4); MONOCYTES # (AUTO) 0.54 x10^3/uL (0.2-0.8); MONOCYTES % (AUTO) 15 % (2-9); NEUTROPHILS # (AUTO) 2.23 x10^3/uL (1.8-6.8); NEUTROPHILS % (AUTO) 62 % (42-75); PLATELET COUNT 276 x10^3/uL (130-400); RED BLOOD COUNT 4.03 x10^6/uL (4.38-5.82)
[2020-03-10] MEDS ORDERED: IBUPROFEN 600 MG TABLET PO ONE (09:00)
--- NOTE | 2020-03-10 09:05 | NUR ---
PT RESTING ON GURNEY WITH EYES CLOSED, EVEN NON-LABORED RESP. VSS, NAD NOTED. THIAMINE INFUSION COMPLETED.
--- NOTE | 2020-03-10 09:07 | NUR ---
TESTS RESULTED. CHART UP FOR RECHECK
[2020-03-10 10:34] VITALS: BP 152/81
--- NOTE | 2020-03-10 10:35 | NUR ---
CLEAN CLOTHES (PANTS, SHIRT, SOCKS) PROVIDED FROM CLOTHES CLOSET.
--- NOTE | 2020-03-10 11:12 | NUR ---
Patient/Caregiver given discharge instructions and they have confirmed that they understand the instructions. Patient ambulatory with steady gait using his cane
== END 2020-03-10 11:14 | disposition home or self-care (01) ==
LOC: ED 07:48
DX: F10.239 Alcohol dependence with withdrawal, unspecified (principal); R00.0 Tachycardia, unspecified; R11.0 Nausea; M25.512 Pain in left shoulder; I10 Essential (primary) hypertension; J44.9 Chronic obstructive pulmonary disease, unspecified; Y90.9 Presence of alcohol in blood, level not specified
CPT/HCPCS: 36415; 80053; 80307; 83605; 85025; 96365; 96366; 96375; 99284; J2060; J3411; J7030

== ENCOUNTER 2020-05-02 18:48 | Emergency (ER) | payer MEDICAID ==
[~2020-05-02] VITALS: Ht 175.3 cm; Wt 60.0 kg
[~2020-05-02 18:48] MED LIST changes: +MULT-449 PO; -MULT1TAB60 PO
[2020-05-02] MEDS ORDERED: SODIUM CHLORIDE 0.9% 1,000ML IVBOLUS ONE (19:00)
[2020-05-02] MEDS ORDERED: VANCOMYCIN PER PHARMACY MC ONE (19:00)
[2020-05-02] MEDS ORDERED: ACETAMINOPHEN 500 MG TABLET PO ONE (19:00)
--- NOTE | 2020-05-02 19:01 | NUR ---
TASK RN: PT CHETAN KRUSE FOR DIZINESS ORIGINATING THIS AM. PT STATES HE IS WORRIED HE MIGHT FALL BECAUSE OF IT. LAST FALL APPROX ONE MONTH AGO, CLAIMING LEFT ARM IS BROKEN BECASUE OF IT, NO OBVIOUS DEFORMITIES. PT STATES LWOER LEG STAPH INFECTION. PT IS ANOx4, DENIES ANY HEAD PAIN, NO DEFICITS NOTED ON ONE SIDE. PT STATES LOWER LEG PAIN 7/10. GROSS NEURO INTACT, CMS INTACT, PULSES 2+ BILATERAL LOWER EXTREMITIES. LOWER EXTREMITIES SKIN IS HOT TO TOUCH. REDDENED WOUNDS/LESIONS NOTED ON BILATERAL LOWER EXTREMITIES. LAW BALDERAS AT . PT PLACED ON SPO2/BP/ECG MONITORING. CESAR, FABIOLA.
--- NOTE | 2020-05-02 19:05 | NUR ---
PT RESTING IN [facility] AT THIS TIME, ASSUMING CARE OF THIS PT. PT IN GOWN WITH XRAY AND LAB AT BS. INITIAL TUBES DRAWN AND SENT TO LAB DURING PIV START. PT RESTING COMFORTABLY IN [facility] AT THIS TIME WITH CALL LIGHT WITHIN REACH. PT QUESTIONS ANSWERED. DR ANDERSON AT BS FOR ASSESSMENT AND HISTORY OF PATIENT.
--- NOTE | 2020-05-02 19:05 | NUR ---
BEDSIDE REPORT TO RM LOUIE.
--- NOTE | 2020-05-02 19:15 | NUR ---
BC X 2 DRAWN BY LAB AT THIS TIME. PT PROVIDED WARM BLANKET.
[2020-05-02] MEDS ORDERED: ACETAMINOPHEN 500 MG TABLET ONE (19:19)
[2020-05-02 19:20] LABS: BASOPHILS # (AUTO) 0.01 x10^3/uL (0-0.1); BASOPHILS % (AUTO) 0 % (0-1); EOSINOPHILS # (AUTO) 0.18 x10^3/uL (0-0.4); EOSINOPHILS % (AUTO) 3 % (1-7); LYMPHOCYTES # (AUTO) 0.96 x10^3/uL (1-3.4); LYMPHOCYTES % (AUTO) 16 % (22-44); MD NO; MEAN CORPUSCULAR HEMOGLOBIN 30.5 pg (27.5-34.5); MEAN CORPUSCULAR VOLUME 92.4 fL (81-97); MEAN PLATELET VOLUME 7.6 fL (7.4-10.4); MONOCYTES # (AUTO) 0.58 x10^3/uL (0.2-0.8); MONOCYTES % (AUTO) 9 % (2-9); NEUTROPHILS # (AUTO) 4.45 x10^3/uL (1.8-6.8); NEUTROPHILS % (AUTO) 72 % (42-75); PLATELET COUNT 344 x10^3/uL (130-400); RED BLOOD COUNT 3.99 x10^6/uL (4.38-5.82); RED CELL DISTRIBUTION WIDTH 17.6 % (9.4-14.8)
[2020-05-02 19:21] LABS: ANION GAP 11 mmol/L (5-15); CALCIUM 7.9 mg/dL (8.5-10.1); CHLORIDE 106 mmol/L (98-107); CREATININE 0.51 mg/dL (0.7-1.3)
[2020-05-02 19:22] LABS: ALANINE AMINOTRANSFERASE 25 U/L (12-78); ALBUMIN 3.3 g/dL (3.4-5.0)
[2020-05-02 19:24] LABS: ALKALINE PHOSPHATASE 94 U/L (45-117); BILIRUBIN,TOTAL 0.3 mg/dL (0.2-1.0); TOTAL PROTEIN 7.7 g/dL (6.4-8.2)
--- NOTE | 2020-05-02 19:28 | NUR ---
IV VANCOMYCIN REQUESTED FROM PHARMACY AT THIS TIME.
[2020-05-02] MEDS ORDERED: VANCOMYCIN 1,500 MG in SODIUM CHLORIDE 0.9% 250 ML IV ONE (19:30)
--- NOTE | 2020-05-02 19:52 | NUR ---
IV ABX INITIATED PER MAR.
[2020-05-02 21:45] VITALS: BP 137/72
--- NOTE | 2020-05-02 21:46 | NUR ---
PT IV D/C WITH TIP INTACT. PT VSS AND UPDATED IN EMR AT THIS TIME. PT DENIES ANY OTHER NEEDS PERTAINING TO THIS VISIT. PT VERBALIZES UNDERSTANDING OF HOME ANTIBIOTIC USE. ALL QUESTIONS ANSWERED. PT AMBULATORY TO REGISTRATION DESK WITH CANE TO AMBULATE.
== END 2020-05-02 23:00 ==
LOC: ED 19:55
DX: L03.115 Cellulitis of right lower limb (principal); R06.02 Shortness of breath; R42 Dizziness and giddiness; R94.31 Abnormal electrocardiogram [ECG] [EKG]; I10 Essential (primary) hypertension
CPT/HCPCS: 36415; 71045; 80053; 83605; 84145; 85025; 87040; 93005; 96361; 96365; 96366; 99285; J3370; J7030; J7050

== ENCOUNTER 2020-05-11 10:08 | Emergency (ER) | payer MEDICAID ==
[~2020-05-11] VITALS: Ht 177.8 cm; Wt 57.0 kg
[2020-05-11] MEDS ORDERED: MORPHINE SULFATE 4 MG/ML, 1ML ONE (10:56)
[2020-05-11] MEDS ORDERED: ONDANSETRON 2MG/ML, 2ML ONE (10:56)
[2020-05-11] MEDS ORDERED: MORPHINE SULFATE 4 MG/ML, 1ML IVPush PRN (11:00)
[2020-05-11] MEDS ORDERED: ONDANSETRON 2MG/ML, 2ML IVPush ONE (11:00)
[2020-05-11] MEDS ORDERED: SODIUM CHLORIDE 0.9% 1,000ML IVBOLUS ONE (11:00)
[2020-05-11 11:10] LABS: BASOPHILS # (AUTO) 0.01 x10^3/uL (0-0.1); BASOPHILS % (AUTO) 0 % (0-1); EOSINOPHILS % (AUTO) 0 % (1-7); LYMPHOCYTES # (AUTO) 0.23 x10^3/uL (1-3.4); LYMPHOCYTES % (AUTO) 6 % (22-44); MD NO; MEAN CORPUSCULAR HEMOGLOBIN 29.8 pg (27.5-34.5); MEAN CORPUSCULAR HGB CONC 32.6 g/dL (33.2-36.2); MEAN CORPUSCULAR VOLUME 91.4 fL (81-97); MEAN PLATELET VOLUME 6.8 fL (7.4-10.4); MONOCYTES # (AUTO) 0.38 x10^3/uL (0.2-0.8); MONOCYTES % (AUTO) 9 % (2-9); NEUTROPHILS # (AUTO) 3.44 x10^3/uL (1.8-6.8); NEUTROPHILS % (AUTO) 85 % (42-75); PLATELET COUNT 135 x10^3/uL (130-400); RED BLOOD COUNT 4.28 x10^6/uL (4.38-5.82); RED CELL DISTRIBUTION WIDTH 17.4 % (9.4-14.8)
[2020-05-11 11:19] LABS: ALANINE AMINOTRANSFERASE 19 U/L (12-78); ALBUMIN 3.5 g/dL (3.4-5.0); ANION GAP 13 mmol/L (5-15); CALCIUM 7.8 mg/dL (8.5-10.1); CHLORIDE 100 mmol/L (98-107); CREATININE 0.56 mg/dL (0.7-1.3)
[2020-05-11 11:23] LABS: ALKALINE PHOSPHATASE 101 U/L (45-117); BILIRUBIN,TOTAL 0.6 mg/dL (0.2-1.0); TOTAL PROTEIN 7.9 g/dL (6.4-8.2); TROPONIN I < 0.015 ng/mL (0.000-0.045)
[2020-05-11 11:49] LABS: MICROSCOPIC NOT IND
[2020-05-11] MEDS ORDERED: LORazepam 2 MG/ML, 1ML IVPush ONE (12:30)
[2020-05-11 12:34] VITALS: BP 155/88
== END 2020-05-11 14:07 | disposition home or self-care (01) ==
LOC: ED 10:31
DX: K29.20 Alcoholic gastritis without bleeding (principal); F10.10 Alcohol abuse, uncomplicated; R11.2 Nausea with vomiting, unspecified; F17.210 Nicotine dependence, cigarettes, uncomplicated; R19.7 Diarrhea, unspecified; Z72.9 Problem related to lifestyle, unspecified; Y90.0 Blood alcohol level of less than 20 mg/100 ml
CPT/HCPCS: 36415; 76700; 80053; 80307; 81003; 83690; 84484; 85025; 93005; 96361; 96374; 96375; 99285; J2270; J2405; J7030

== ENCOUNTER 2020-05-31 12:11 | Inpatient (IN) | payer MEDICAID ==
[~2020-05-31] VITALS: Ht 175.3 cm; Wt 57.1 kg
--- NOTE | 2020-05-31 12:22 | NUR ---
CHETAN KRUSE PT C/O NAUSEA/VOMITING/WEAKNESS/DIZZINESS FOR "THE LAST FEW DAYS", STATES HE ALSO HAS A BAD LEG INFECTION AND JUST FINISHED ABX - PT HAS RLE ANTERIOR CALF NON HEALED WOUND THAT IS RED AND WEEPING. PT PLACED ON MONITOR, PT EDUCATED ON CALLING BEFORE GETTING UP, PT STATES UNDERSTANDING. CALL LIGHT WITHIN REACH.
[2020-05-31] MEDS ORDERED: SODIUM CHLORIDE 0.9% 1,000ML IVBOLUS ONE (13:00)
[2020-05-31] MEDS ORDERED: CHLORDIAZEPOXIDE 10 MG CAPSULE PO PRN (13:00)
[2020-05-31] MEDS ORDERED: SODIUM CHLORIDE FLUSH 10ML SYR IVF ONE (13:00)
[2020-05-31] MEDS ORDERED: THIAMINE 100MG TABLET PO ONE (13:00)
[2020-05-31] MEDS ORDERED: CHLORDIAZEPOXIDE 10 MG CAPSULE ONE (13:20)
[2020-05-31] MEDS ORDERED: THIAMINE 100MG TABLET ONE (13:20)
--- NOTE | 2020-05-31 13:24 | NUR ---
PIV STARTED. PT MEDICATED PER DEC. AN ADDITIONAL WARM BLANKET PROVIDED. CALL BUTTON IN HAND.
[2020-05-31 13:25] LABS: BASOPHILS # (AUTO) 0.01 x10^3/uL (0-0.1); BASOPHILS % (AUTO) 0 % (0-1); EOSINOPHILS % (AUTO) 0 % (1-7); LYMPHOCYTES # (AUTO) 0.38 x10^3/uL (1-3.4); LYMPHOCYTES % (AUTO) 12 % (22-44); MD NO; MEAN CORPUSCULAR HEMOGLOBIN 30.3 pg (27.5-34.5); MEAN CORPUSCULAR VOLUME 91.8 fL (81-97); MONOCYTES # (AUTO) 0.35 x10^3/uL (0.2-0.8); MONOCYTES % (AUTO) 11 % (2-9); NEUTROPHILS % (AUTO) 77 % (42-75); PLATELET COUNT 172 x10^3/uL (130-400); RED BLOOD COUNT 4.73 x10^6/uL (4.38-5.82); RED CELL DISTRIBUTION WIDTH 19.4 % (9.4-14.8)
[2020-05-31 13:34] LABS: ALANINE AMINOTRANSFERASE 45 U/L (12-78); ALBUMIN 3.5 g/dL (3.4-5.0); ANION GAP 16 mmol/L (5-15); CALCIUM 8.6 mg/dL (8.5-10.1); CHLORIDE 89 mmol/L (98-107)
[2020-05-31] MEDS ORDERED: KETOROLAC 30 MG/1 ML ONE (13:35)
[2020-05-31 13:37] LABS: ALKALINE PHOSPHATASE 113 U/L (45-117); BILIRUBIN,TOTAL 1.2 mg/dL (0.2-1.0); TOTAL PROTEIN 9.3 g/dL (6.4-8.2)
[2020-05-31] MEDS ORDERED: KETOROLAC 30 MG/1 ML IVPush ONE (14:00)
[2020-05-31] MEDS ORDERED: ONDANSETRON ODT 4 MG PO PRN (15:00)
[2020-05-31] MEDS ORDERED: DOCUSATE 100 MG CAPSULE PO PRN (15:00)
[2020-05-31] MEDS ORDERED: hydrALAzine 20 MG/ML, 1ML IVPush PRN (15:00)
[2020-05-31] MEDS ORDERED: ENALAPRILAT 1.25 MG/ML, 2ML IVPush PRN (15:00)
[2020-05-31] MEDS ORDERED: ACETAMINOPHEN 325 MG TABLET PO PRN (15:00)
[2020-05-31] MEDS ORDERED: BISACODYL 10 MG SUPP PR PRN (15:00)
[2020-05-31] MEDS ORDERED: LORazepam 2 MG/ML, 1ML IV PRN ×4 (15:30)
[2020-05-31] MEDS ORDERED: LORazepam 0.5MG TABLET PO PRN (15:30)
[2020-05-31] MEDS ORDERED: LORazepam 1MG TABLET PO PRN ×2 (15:30)
[2020-05-31] MEDS ORDERED: POTASSIUM CHLORIDE 20 MEQ, MAGNESIUM SULFATE 2 GM, THIAMINE 200 MG, MVI ADULT 10 ML, FO... IV SCH (16:30)
[2020-05-31] MEDS ORDERED: HEPARIN 5,000 UNITS/ML, 1ML ONE (16:39)
[2020-05-31] MEDS: HEPARIN 5,000 UNITS/ML, 1ML SQ SCH ×2 (17:19→23:37)
--- NOTE | 2020-05-31 17:20 | NUR ---
PT MEDICATED PER DEC. VS UPDATED AND WNL. PT TO HOSPITAL ROOM AT THIS TIME.
[2020-05-31 17:46] VITALS: BP 128/80
[2020-05-31 20:00] VITALS: BP 117/88
[2020-05-31 20:02] VITALS: BP 93/57
[2020-05-31 20:06] VITALS: BP 80/44
[2020-06-01 00:32] VITALS: BP 123/74
[2020-06-01 06:13] LABS: ANION GAP 9 mmol/L (5-15); CALCIUM 8.2 mg/dL (8.5-10.1); CHLORIDE 100 mmol/L (98-107)
[2020-06-01 06:14] LABS: CREATININE 0.61 mg/dL (0.7-1.3)
[2020-06-01] MEDS: HEPARIN 5,000 UNITS/ML, 1ML SQ SCH ×3 (06:25→23:21)
[2020-06-01 07:02] VITALS: BP 141/83
[2020-06-01] MEDS: SENNA/DOCUSATE TABLET PO SCH (08:46)
[2020-06-01] MEDS ORDERED: POTASSIUM CHLORIDE 40 MEQ in SODIUM CHLORIDE 0.9% 500 ML IV ONE (10:00)
[2020-06-01] MEDS: KETOROLAC 30 MG/1 ML IV PRN ×2 (11:16→20:51)
[2020-06-01] MEDS: POTASSIUM CHLORIDE 20 MEQ TAB.ER.PRT PO SCH ×2 (11:16→17:36)
[2020-06-01 13:05] VITALS: BP 131/87
[2020-06-01] MEDS ORDERED: POTASSIUM CHLORIDE 20 MEQ, MAGNESIUM SULFATE 2 GM, THIAMINE 200 MG, MVI ADULT 10 ML, FO... IV SCH (16:30)
[2020-06-01 18:41] VITALS: BP 129/80
[2020-06-02 00:35] VITALS: BP 128/76
[2020-06-02 06:09] LABS: ANION GAP 8 mmol/L (5-15); CALCIUM 8.3 mg/dL (8.5-10.1); CHLORIDE 107 mmol/L (98-107)
[2020-06-02 06:10] LABS: CREATININE 0.56 mg/dL (0.7-1.3)
[2020-06-02] MEDS: HEPARIN 5,000 UNITS/ML, 1ML SQ SCH (06:37)
[2020-06-02 07:15] VITALS: BP 144/87
[2020-06-02] MEDS: POTASSIUM CHLORIDE 20 MEQ TAB.ER.PRT PO SCH (09:00)
[2020-06-02] MEDS: SENNA/DOCUSATE TABLET PO SCH (09:01)
[2020-06-02] MEDS: KETOROLAC 30 MG/1 ML IV PRN (09:17)
[2020-06-02 12:36] VITALS: BP 119/73
== END 2020-06-02 13:30 | disposition home or self-care (01) | DRG 426 ==
LOC: ED 13:54 → EDIP 14:20 → OBSVTOIN 14:20 → INTOOBSV 14:20 → 4WST 17:27
PROVIDERS: ADMIT Family Medicine; ATTEND Family Medicine
DX: E87.1 Hypo-osmolality and hyponatremia (principal); E86.0 Dehydration; F10.20 Alcohol dependence, uncomplicated; F17.200 Nicotine dependence, unspecified, uncomplicated; I10 Essential (primary) hypertension; I16.0 Hypertensive urgency; G40.909 Epilepsy, unspecified, not intractable, without status epilepticus; I95.1 Orthostatic hypotension; J44.9 Chronic obstructive pulmonary disease, unspecified; Z59.0 Homelessness; Z88.1 Allergy status to other antibiotic agents; Z88.8 Allergy status to other drugs, medicaments and biological substances; Z71.6 Tobacco abuse counseling
CPT/HCPCS: 36415; 80048; 80053; 83735; 85025; 93005; G0378; J1644; J1885; J3411; J3475; J3480; J7042; J7030; J7040

== ENCOUNTER 2020-06-23 03:23 | Inpatient (IN) | payer MEDICAID ==
[~2020-06-23] VITALS: Ht 175.3 cm; Wt 59.2 kg
[2020-06-23] MEDS ORDERED: methylPREDNISolone SOD SUCC 125 MG/2 ML IVPush ONE (03:30)
[2020-06-23] MEDS ORDERED: IPRATROPIUM 0.5 MG/2.5 ML INHA NPPB ONE (03:30)
[2020-06-23] MEDS ORDERED: ALBUTEROL SULFATE 2.5 MG/3 ML NPPB ONE (03:30)
[2020-06-23] MEDS ORDERED: SODIUM CHLORIDE 0.9% 1,000ML IVBOLUS ONE (03:30)
[2020-06-23 03:57] LABS: BASOPHILS % (AUTO) 0 % (0-1); EOSINOPHILS # (AUTO) 0.01 x10^3/uL (0-0.4); EOSINOPHILS % (AUTO) 0 % (1-7); LYMPHOCYTES # (AUTO) 0.21 x10^3/uL (1-3.4); LYMPHOCYTES % (AUTO) 3 % (22-44); MD NO; MEAN CORPUSCULAR HEMOGLOBIN 31.2 pg (27.5-34.5); MEAN CORPUSCULAR HGB CONC 32.9 g/dL (33.2-36.2); MEAN PLATELET VOLUME 6.9 fL (7.4-10.4); MONOCYTES # (AUTO) 0.32 x10^3/uL (0.2-0.8); MONOCYTES % (AUTO) 4 % (2-9); NEUTROPHILS # (AUTO) 7.55 x10^3/uL (1.8-6.8); NEUTROPHILS % (AUTO) 93 % (42-75); PLATELET COUNT 159 x10^3/uL (130-400); RED BLOOD COUNT 3.76 x10^6/uL (4.38-5.82); RED CELL DISTRIBUTION WIDTH 21.2 % (9.4-14.8)
[2020-06-23 04:06] LABS: ALANINE AMINOTRANSFERASE 32 U/L (12-78); ALBUMIN 2.7 g/dL (3.4-5.0); ANION GAP 16 mmol/L (5-15); CALCIUM 7.8 mg/dL (8.5-10.1); CHLORIDE 97 mmol/L (98-107); CREATININE 0.42 mg/dL (0.7-1.3)
[2020-06-23 04:11] LABS: ALKALINE PHOSPHATASE 121 U/L (45-117); BILIRUBIN,TOTAL 0.7 mg/dL (0.2-1.0); TROPONIN I < 0.015 ng/mL (0.000-0.045)
[2020-06-23] MEDS ORDERED: LORazepam 2 MG/ML, 1ML IVPush ONE (04:30)
[2020-06-23] MEDS ORDERED: ALBUTEROL SULFATE 2.5 MG/3 ML ONE (04:41)
[2020-06-23] MEDS ORDERED: methylPREDNISolone SOD SUCC 125 MG/2 ML ONE (04:41)
[2020-06-23] MEDS ORDERED: IPRATROPIUM 0.5 MG/2.5 ML INHA ONE (04:41)
[2020-06-23] MEDS ORDERED: POTASSIUM CHLORIDE 20 MEQ TAB.ER.PRT PO ONE (05:00)
--- NOTE | 2020-06-23 05:00 | NUR ---
BIBA. Pt c/o sudden onset L-sided chest pain radiating down L arm x 2 hours. Also c/o pain to LE bilaterally. Healing rash noted to both feet, worse on RLE. (+) CSM, (+) DP pulses bilaterally. Pt states he was admited to [facility] last week for IV abx for same complaint. Attempted to clean dried feces from R foot without success, pt states, "just leave it, it's ok." Pt also c/o fever/chills/SOB x days, states hx COPD. Audible wheezes noted. Speaking in clear, full sentences. No s/sx acute respiratory distress.
[2020-06-23] MEDS ORDERED: LORazepam 2 MG/ML, 1ML ONE (05:20)
[2020-06-23] MEDS ORDERED: MAGNESIUM OXIDE 400 MG TABLET PO ONE (06:00)
[2020-06-23] MEDS ORDERED: POTASSIUM CHLORIDE 20 MEQ TAB.ER.PRT ONE (06:12)
[2020-06-23] MEDS ORDERED: MAGNESIUM OXIDE 400 MG TABLET ONE (06:12)
[2020-06-23] MEDS ORDERED: THIAMINE 100 MG in SODIUM CHLORIDE 0.9% 50 ML IVPB ONE (06:30)
--- NOTE | 2020-06-23 06:44 | NUR ---
Pt incontinent of urine. States, "I pressed the button but it just came out too quickly." Changed, cleaned, provided new linens. Urinal placed at bedside. Call light within reach
--- NOTE | 2020-06-23 06:56 | NUR ---
REPORT FROM ALONSO, ASSUME CARE OF PT AT THIS TIME.
--- NOTE | 2020-06-23 07:08 | NUR ---
ROUNDED ON PT, PT AWAKE, NAD, WATCHING TV. CONTINUE TO MONITOR AND AWAIT ADMIT BED. THIAMINE INFUSING, NS BOLUS COMPLETED.
--- NOTE | 2020-06-23 07:59 | NUR ---
REPORT TO ADRIAN RN, PT READY FOR TRANSPORT.
[2020-06-23 08:39] VITALS: BP 106/70
[2020-06-23] MEDS ORDERED: ONDANSETRON 2MG/ML, 2ML IVPush PRN (10:00)
[2020-06-23] MEDS ORDERED: MAGNESIUM SULFATE PMX 2GM/50ML 50 ML IV ONE ×2 (10:00→12:30)
[2020-06-23 11:57] LABS: TROPONIN I < 0.015 ng/mL (0.000-0.045)
[2020-06-23] MEDS: SODIUM CHLORIDE 0.9% 1,000 ML IV SCH ×2 (12:16→23:01)
[2020-06-23] MEDS: ENOXAPARIN 40 MG/0.4 ML SQ SCH (12:17)
[2020-06-23] MEDS: methylPREDNISolone SOD SUCC 125 MG/2 ML IVPush SCH ×2 (12:17→18:00)
[2020-06-23 12:38] VITALS: BP 111/70
[2020-06-23] MEDS: DOXYCYCLINE 100 MG in DEXTROSE 5% 250 ML IV SCH ×2 (15:28→21:25)
[2020-06-23 20:00] VITALS: BP 105/66
[2020-06-24 01:34] VITALS: BP 110/66
[2020-06-24 02:07] LABS: MICROSCOPIC INDICATED
[2020-06-24] MEDS: methylPREDNISolone SOD SUCC 125 MG/2 ML IVPush SCH ×3 (02:18→17:41)
[2020-06-24 06:21] LABS: CHLORIDE 96 mmol/L (98-107)
[2020-06-24 06:27] LABS: ALANINE AMINOTRANSFERASE 26 U/L (12-78); ALBUMIN 2.3 g/dL (3.4-5.0); ALKALINE PHOSPHATASE 101 U/L (45-117); ANION GAP 8 mmol/L (5-15); BILIRUBIN,TOTAL 0.4 mg/dL (0.2-1.0); CREATININE 0.52 mg/dL (0.7-1.3); TOTAL PROTEIN 7.5 g/dL (6.4-8.2)
[2020-06-24 06:44] LABS: MEAN CORPUSCULAR HEMOGLOBIN 31.1 pg (27.5-34.5); MEAN CORPUSCULAR HGB CONC 32.6 g/dL (33.2-36.2); MEAN PLATELET VOLUME 7.9 fL (7.4-10.4); PLATELET COUNT 163 x10^3/uL (130-400); RED BLOOD COUNT 3.74 x10^6/uL (4.38-5.82); RED CELL DISTRIBUTION WIDTH 21.2 % (9.4-14.8)
[2020-06-24 06:45] LABS: BASOPHILS % (AUTO) 0 % (0-1); EOSINOPHILS # (AUTO) 0.01 x10^3/uL (0-0.4); EOSINOPHILS % (AUTO) 0 % (1-7); LYMPHOCYTES # (AUTO) 0.19 x10^3/uL (1-3.4); LYMPHOCYTES % (AUTO) 2 % (22-44); MD SCAN; MONOCYTES # (AUTO) 0.27 x10^3/uL (0.2-0.8); MONOCYTES % (AUTO) 3 % (2-9); NEUTROPHILS # (AUTO) 7.51 x10^3/uL (1.8-6.8); NEUTROPHILS % (AUTO) 94 % (42-75)
[2020-06-24 07:02] VITALS: BP 145/85
[2020-06-24] MEDS: THIAMINE 100 MG in SODIUM CHLORIDE 0.9% 50 ML IV SCH (08:58)
[2020-06-24] MEDS: DOXYCYCLINE 100 MG in DEXTROSE 5% 250 ML IV SCH ×2 (10:23→21:23)
[2020-06-24] MEDS: ENOXAPARIN 40 MG/0.4 ML SQ SCH (10:23)
[2020-06-24 12:00] VITALS: BP 108/68
[2020-06-24] MEDS ORDERED: MAGNESIUM SULFATE PMX 2GM/50ML 50 ML IV ONE (12:30)
[2020-06-24 20:01] VITALS: BP 126/77
[2020-06-24] MEDS: SODIUM CHLORIDE 0.9% 1,000 ML IV SCH (20:37)
[2020-06-25 01:24] VITALS: BP 136/87
[2020-06-25] MEDS: SODIUM CHLORIDE 0.9% 1,000 ML IV SCH (01:27)
[2020-06-25] MEDS: methylPREDNISolone SOD SUCC 125 MG/2 ML IVPush SCH ×3 (01:33→17:12)
[2020-06-25 06:02] LABS: ANION GAP 7 mmol/L (5-15); CHLORIDE 99 mmol/L (98-107)
[2020-06-25 06:03] LABS: CREATININE 0.39 mg/dL (0.7-1.3)
[2020-06-25 06:20] VITALS: BP 124/66
[2020-06-25 07:05] LABS: MEAN CORPUSCULAR HGB CONC 31.9 g/dL (33.2-36.2); MEAN PLATELET VOLUME 7.8 fL (7.4-10.4); PLATELET COUNT 171 x10^3/uL (130-400)
[2020-06-25 07:06] LABS: BASOPHILS % (AUTO) 0 % (0-1); EOSINOPHILS % (AUTO) 0 % (1-7); LYMPHOCYTES # (AUTO) 0.28 x10^3/uL (1-3.4); LYMPHOCYTES % (AUTO) 5 % (22-44); MD SCAN; MONOCYTES # (AUTO) 0.31 x10^3/uL (0.2-0.8); MONOCYTES % (AUTO) 5 % (2-9); NEUTROPHILS # (AUTO) 5.17 x10^3/uL (1.8-6.8); NEUTROPHILS % (AUTO) 90 % (42-75)
[2020-06-25] MEDS: THIAMINE 100 MG in SODIUM CHLORIDE 0.9% 50 ML IV SCH (08:40)
[2020-06-25] MEDS ORDERED: POTASSIUM CHLORIDE 10% 40 MEQ/30 ML UDC PO ONE (09:30)
[2020-06-25] MEDS: ENOXAPARIN 40 MG/0.4 ML SQ SCH (10:41)
[2020-06-25] MEDS: DOXYCYCLINE 100 MG in DEXTROSE 5% 250 ML IV SCH ×2 (10:41→22:39)
[2020-06-25] MEDS ORDERED: POTASSIUM CHLORIDE 20 MEQ TAB.ER.PRT PO ONE (11:00)
[2020-06-25 12:00] VITALS: BP 135/85
[2020-06-25 18:31] VITALS: BP 154/85
[2020-06-26 00:35] VITALS: BP 135/73
[2020-06-26] MEDS: methylPREDNISolone SOD SUCC 125 MG/2 ML IVPush SCH ×4 (02:20→22:11)
[2020-06-26 06:01] LABS: MEAN CORPUSCULAR HEMOGLOBIN 31.3 pg (27.5-34.5); MEAN CORPUSCULAR HGB CONC 32.3 g/dL (33.2-36.2); MEAN PLATELET VOLUME 7.6 fL (7.4-10.4); PLATELET COUNT 205 x10^3/uL (130-400); RED BLOOD COUNT 3.57 x10^6/uL (4.38-5.82); RED CELL DISTRIBUTION WIDTH 20.3 % (9.4-14.8)
[2020-06-26 06:27] LABS: MD MORPH REVIEW ONLY
[2020-06-26 06:28] LABS: BASOPHILS % (AUTO) 0 % (0-1); EOSINOPHILS % (AUTO) 0 % (1-7); LYMPHOCYTES # (AUTO) 0.28 x10^3/uL (1-3.4); LYMPHOCYTES % (AUTO) 7 % (22-44); MONOCYTES # (AUTO) 0.37 x10^3/uL (0.2-0.8); MONOCYTES % (AUTO) 9 % (2-9); NEUTROPHILS # (AUTO) 3.57 x10^3/uL (1.8-6.8); NEUTROPHILS % (AUTO) 85 % (42-75)
[2020-06-26 06:29] LABS: <PLATELET ESTIMATE> ADEQUATE; <PLT MORPHOLOGY> NORMAL PLT MORPH; ANISOCYTOSIS 1+; HYPOCHROMIA 1+; POLYCHROMASIA 1+
[2020-06-26 06:33] LABS: ALANINE AMINOTRANSFERASE 72 U/L (12-78); ALBUMIN 2.4 g/dL (3.4-5.0); ANION GAP 7 mmol/L (5-15); CALCIUM 8.1 mg/dL (8.5-10.1); CHLORIDE 99 mmol/L (98-107); CREATININE 0.48 mg/dL (0.7-1.3)
[2020-06-26 06:35] LABS: ALKALINE PHOSPHATASE 89 U/L (45-117); BILIRUBIN,TOTAL 0.4 mg/dL (0.2-1.0)
[2020-06-26] MEDS ORDERED: POTASSIUM CHLORIDE 10% 40 MEQ/30 ML UDC PO ONE (07:00)
[2020-06-26 07:11] VITALS: BP 163/92
[2020-06-26] MEDS ORDERED: REGADENOSON 0.4 MG/5 ML SYRINGE ONE (08:43)
[2020-06-26] MEDS ORDERED: POTASSIUM CHLORIDE 20 MEQ TAB.ER.PRT ONE (09:43)
[2020-06-26] MEDS: ENOXAPARIN 40 MG/0.4 ML SQ SCH (09:54)
[2020-06-26] MEDS ORDERED: MAGNESIUM SULFATE PMX 4GM/100M 100 ML IV ONE (10:00)
[2020-06-26] MEDS: THIAMINE 100 MG in SODIUM CHLORIDE 0.9% 50 ML IV SCH (11:09)
[2020-06-26 14:18] VITALS: BP 123/78
[2020-06-26] MEDS: DOXYCYCLINE 100MG TABLET PO SCH ×2 (16:42→22:11)
[2020-06-26] MEDS ORDERED: POTASSIUM CHLORIDE 20 MEQ TAB.ER.PRT PO ONE (18:00)
[2020-06-26] MEDS: THIAMINE 100MG TABLET PO SCH (18:49)
[2020-06-26 19:53] VITALS: BP 159/85
[2020-06-27 00:58] VITALS: BP 155/79
[2020-06-27 06:05] LABS: CHLORIDE 102 mmol/L (98-107)
[2020-06-27 06:14] LABS: ANION GAP 8 mmol/L (5-15); CALCIUM 8.4 mg/dL (8.5-10.1)
[2020-06-27] MEDS ORDERED: POTASSIUM CHLORIDE 10% 40 MEQ/30 ML UDC PO ONE (07:00)
[2020-06-27] MEDS ORDERED: PRED20TA PO (07:25)
[2020-06-27] MEDS ORDERED: MULT-449 PO (07:25)
[2020-06-27 07:40] VITALS: BP 143/82
[2020-06-27] MEDS ORDERED: POTASSIUM CHLORIDE 20 MEQ TAB.ER.PRT ONE (08:13)
[2020-06-27] MEDS: methylPREDNISolone SOD SUCC 125 MG/2 ML IVPush SCH ×2 (08:15→19:52)
[2020-06-27] MEDS: THIAMINE 100MG TABLET PO SCH (08:16)
[2020-06-27] MEDS: DOXYCYCLINE 100MG TABLET PO SCH ×2 (08:16→19:53)
[2020-06-27] MEDS ORDERED: REGADENOSON 0.4 MG/5 ML SYRINGE ONE (08:45)
[2020-06-27] MEDS: ENOXAPARIN 40 MG/0.4 ML SQ SCH (10:00)
[2020-06-27] MEDS ORDERED: IVERMECTIN 3 MG TAB PO ONE (12:00)
[2020-06-27] MEDS ORDERED: PERMETHRIN CRM 5%, 60GM TP ONE (13:00)
[2020-06-27 13:26] VITALS: BP 134/90
[2020-06-27 19:55] VITALS: BP 131/81
[2020-06-28 01:59] VITALS: BP 127/76
[2020-06-28 08:15] VITALS: BP 124/77
[2020-06-28] MEDS: methylPREDNISolone SOD SUCC 125 MG/2 ML IVPush SCH (09:47)
[2020-06-28] MEDS: DOXYCYCLINE 100MG TABLET PO SCH (09:51)
[2020-06-28] MEDS: THIAMINE 100MG TABLET PO SCH (09:51)
[2020-06-28] MEDS: ENOXAPARIN 40 MG/0.4 ML SQ SCH (09:57)
[2020-06-28 14:23] VITALS: BP 136/72
== END 2020-06-28 14:28 | disposition home or self-care (01) | DRG 133 ==
LOC: ED 04:35 → EDIP 06:08 → 5SO 08:22 → 4EST 10:41 → 3N 06-25 15:14
PROVIDERS: ADMIT Hospitalist; ATTEND Hospitalist
DX: J96.01 Acute respiratory failure with hypoxia (principal); Z20.828 Contact with and (suspected) exposure to other viral communicable diseases; F10.239 Alcohol dependence with withdrawal, unspecified; E87.6 Hypokalemia; E87.2 Acidosis; E83.42 Hypomagnesemia; F17.200 Nicotine dependence, unspecified, uncomplicated; G40.909 Epilepsy, unspecified, not intractable, without status epilepticus; I10 Essential (primary) hypertension; J44.1 Chronic obstructive pulmonary disease with (acute) exacerbation; L03.116 Cellulitis of left lower limb; L03.115 Cellulitis of right lower limb; Z86.19 Personal history of other infectious and parasitic diseases; Z59.0 Homelessness
CPT/HCPCS: 36415; 71045; 78452; 80048; 80053; 80307; 81001; 83605; 83735; 83880; 84145; 84484; 85025; 87040; 87169; 87635; 93005; 93017; 94640; 96365; 99285; G0378; J1650; J2785; J3411; J7060; J7613; J7644; A9502; J2060; J2930; J3475; J7030

== ENCOUNTER 2020-09-02 10:34 | Emergency (ER) | payer MEDICAID ==
[~2020-09-02] VITALS: Ht 175.3 cm; Wt 55.0 kg
--- NOTE | 2020-09-02 10:36 | NUR ---
PATIENT ARRIVES COVERED IN STOOL FROM DIARREA RECENTLY, HE IS HOMELESS [facility]. HE HAS COMPLAINTS NAUSEA/VOMITING/DIARREA TWO DAYS.
--- NOTE | 2020-09-02 10:45 | NUR ---
IN FURTHER ASSESSMENT PATIENT HAS RLE RED, INFECTED AND WOUND COVERED IN A THICK LAYER OF POOP
[2020-09-02] MEDS ORDERED: SODIUM CHLORIDE FLUSH 10ML SYR IVF ONE (11:30)
[2020-09-02] MEDS ORDERED: SODIUM CHLORIDE 0.9% 1,000ML IVBOLUS ONE (11:30)
[2020-09-02 12:00] LABS: MICROSCOPIC NOT IND
[2020-09-02 12:00] LABS: BASOPHILS % (AUTO) 1 % (0-1); EOSINOPHILS % (AUTO) 1 % (1-7); LYMPHOCYTES % (AUTO) 14 % (22-44); MEAN CORPUSCULAR HEMOGLOBIN 33.5 pg (27.5-34.5); MEAN CORPUSCULAR HGB CONC 33.6 g/dL (33.2-36.2); MEAN PLATELET VOLUME 6.7 fL (7.4-10.4); MONOCYTES % (AUTO) 12 % (2-9); NEUTROPHILS % (AUTO) 72 % (42-75); PLATELET COUNT 239 x10^3/uL (130-400); RED BLOOD COUNT 4.25 x10^6/uL (4.38-5.82); RED CELL DISTRIBUTION WIDTH 14.9 % (9.4-14.8)
[2020-09-02 12:06] LABS: MD NO
[2020-09-02 12:12] LABS: CHLORIDE 103 mmol/L (98-107)
[2020-09-02 12:21] LABS: ALANINE AMINOTRANSFERASE 19 U/L (12-78); ALBUMIN 3.9 g/dL (3.4-5.0); ALKALINE PHOSPHATASE 112 U/L (45-117); ANION GAP 10 mmol/L (5-15); BILIRUBIN,TOTAL 0.7 mg/dL (0.2-1.0); CALCIUM 8.9 mg/dL (8.5-10.1); CREATININE 0.67 mg/dL (0.7-1.3)
--- NOTE | 2020-09-02 12:28 | NUR ---
sent urine. walked patient to shower and scrubbed thick layer of stool off patient from hips down. in bed rails up.
--- NOTE | 2020-09-02 14:22 | NUR ---
patient had 250 dark urine out. in bed, vss, rails up
--- NOTE | 2020-09-02 15:42 | NUR ---
WENT TO PT AT 15:40; PT HAD BOWEL MOVEMENT. NEEDS TO BE CLEANED
--- NOTE | 2020-09-02 15:52 | NUR ---
patient cleaned of a large amount of liquid stool. called ct to get his study done
--- NOTE | 2020-09-02 15:58 | NUR ---
patient left for ct scan
[2020-09-02] MEDS ORDERED: OMNIPAQUE 350 MG/ML, 100ML BOTTLE ONE (16:21)
--- NOTE | 2020-09-02 17:45 | NUR ---
got patient meal. ate all. patient got dressed, reviewed discharge.
[2020-09-02 17:46] VITALS: BP 123/78
--- NOTE | 2020-09-02 18:17 | NUR ---
HELPED PATIENT GET DRESSED AND THINGS. REFUSED TAXI. FOOD GIVEN. HAS CLEAN CLOTHES
== END 2020-09-02 18:26 | disposition home or self-care (01) ==
LOC: ED 16:20
DX: A08.4 Viral intestinal infection, unspecified (principal); R00.0 Tachycardia, unspecified; I10 Essential (primary) hypertension; J44.9 Chronic obstructive pulmonary disease, unspecified; G40.909 Epilepsy, unspecified, not intractable, without status epilepticus
CPT/HCPCS: 36415; 74177; 80053; 81003; 83605; 83690; 85025; 96360; 99285; J7030; Q9967